=== PATIENT | male | born 1985 | race Caucasian/White ===

== ENCOUNTER 2021-03-04 18:08 | Inpatient (IN) | payer SELFPAY ==
[2021-03-04 18:13] VITALS: BP 139/91; PULSE 113; RESP 18; TEMP 37.4; O2SAT 98; BMI 33.9
[2021-03-04 19:09] LABS: Basophils # 0.1 10^3/uL (0.0-0.1); Basophils % 0.3 %; Eosinophils # 0.1 10^3/uL (0.0-0.8); Hematocrit 56.2 % (42.0-52.0); Hemoglobin 19.1 g/dL (11.7-16.6); Lymphocytes # 6.1 10^3/uL (0.8-4.8); Lymphocytes % 41.6 %; Mean Corpuscular Hemoglobin 30.6 pg (28.0-34.0); Mean Corpuscular Volume 90.1 fl (80-94); Monocytes # 0.5 10^3/uL (0.2-0.9); Monocytes % 3.5 %; Neutrophils # 7.78 10^3/uL (1.8-7.7); Neutrophils % 53.3 %; Nucleated Red Blood Cells % 0 %; Platelet Count 348 10^3/cmm (130-400); Red Blood Count 6.24 10^6/uL (4.1-5.3); Red Cell Distribution Width 12.5 % (12.1-15.1); White Blood Count 14.6 10^3/uL (4.0-10.0)
--- NOTE | 2021-03-04 19:28 | W.ED.GENADLT ---
HPI - General Adult General: Chief complaint: Psychiatric Symptoms Stated complaint: French Drawer Order 96 Time Seen by Provider: 03/04/21 18:31 History of Present Illness: HPI narrative: HPI: [35]yo patient brought in by police under form 96 for homicidal attempt and ideation. On arrival, the patient is AAOx3 and cooperative with my evaluation. No focal complaints of chest pain, shortness of breath, palpitations, N/V, focal GI/ complaints. +HI, denies HI. No complaints of hallucinations. Onset: chronic Duration: ongoing Location: home Severity: severe Review of Systems Narrative: Constitutional: No fever, no chills. HEENT: No vision changes CV: No chest pain, no palpitations PULM: No productive cough, no dyspnea. GI: No abdominal pain, no N/V/D. : No dysuria MSKEL: No muscle pain SKIN: No new rashes, no lesions. NEURO: No headache, no focal weakness. HEME: No visible bruises PSYCH: +Agitated mood, HI PFSH ED PFSH: Family History (Updated 10/27/19 @ 13:39 by Lola Cortez, CT) Other No significant past medical history Social History (Updated 10/27/19 @ 13:39 by Lola Cortez, CT) Alcohol intake: current Alcohol intake frequency: 0-2 Drinks per Day Desire information about alcohol rehabilitation?: No Counseling given: No Desire information about substance/drug rehabilitation?: No Counseling given: No Adopted: No Caregiver/support person: No Lives independently: Yes Household members: spouse Marital status: History of recent travel: No Current gender identity: Male Physical Exam Narrative: EXAM NARRATIVE: Head: Atraumatic Eyes: PERRL, conjunctiva without injection, eyes tracking ENT: Mucous membrane moist NECK: Supple without lymphadenopathy LUNGS: LCTAB CV: RRR ABDOMEN: Soft, nontender EXTREMITY: Normal ROM SKIN: No rash or erythema NEURO: Awake and alert. No focal weakness PSYCH: +Agitated mood Course Vital Signs: Vital signs: Vital Signs Temperature 98.3 F 03/05/21 22:00 Pulse Rate 89 03/05/21 22:00 Respiratory Rate 18 03/05/21 22:00 Blood Pressure 161/97 03/05/21 22:00 Pulse Oximetry 98 03/05/21 22:00 MDM - General Adult MDM Narrative: Medical decision making narrative: [35]yo patient presenting for HI. HDS, exam within normal limit Thoughts are linear and organized, and the patient has no AH/VH, or SI. Clinically the patient displays no overt toxidrome; they are well appearing, with low suspicion for toxic ingestion given history and exam. Symptoms unlikely 2/2 anemia, hypothyroidism, infection, or ICH. Workup: CBC, CMP, Lipase, salicylate/tylenol, USD Lab findings: wnl, UDS positive for marijuana and barbiturates [time] On reassessment, labs and workup wnl. Patient is hemodynamically stable with no acute medical complaints. Case discussed with psychiatric provider Dr. Abundio Abdalla at [facility] psych inpatient with recommendation for admission Disposition: Psych Lab Data: Labs: Lab Results 03/04/21 03/04/21 03/04/21 19:00 19:00 19:00 WBC 14.6 10^3/uL H 10 ^3/uL (4.0-10.0) RBC 6.24 10^6/uL H 10 ^6/uL (4.1-5.3) Hgb 19.1 g/dL H g/dL (11.7-16.6) Hct 56.2 % H % (42.0-52.0) MCV 90.1 fl fl (80-94) MCH 30.6 pg pg (28.0-34.0) MCHC 34.0 g/dL g/dL (30.0-36.0) RDW 12.5 % % (12.1-15.1) Plt Count 348 10^3/cmm 10^3 /cmm (130-400) MPV 10.0 fL fL (7.4-10.4) Neut % (Auto) 53.3 % % Lymph % (Auto) 41.6 % % [place] % (Auto) 3.5 % % Eos % (Auto) 1.0 % % Baso % (Auto) 0.3 % % Neut # (Auto) 7.78 10^3/uL H 10 ^3/uL (1.8-7.7) Lymph # (Auto) 6.1 10^3/uL H 10^ 3/uL (0.8-4.8) [place] # (Auto) 0.5 10^3/uL 10^3/ uL (0.2-0.9) Eos # (Auto) 0.1 10^3/uL 10^3/ uL (0.0-0.8) Baso # (Auto) 0.1 10^3/uL 10^3/ uL (0.0-0.1) Nucleated RBC % (a uto) 0 % % Nucleated RBCs # 0.0 /100WBC /100W BC Sodium 142 mmol/L mmol/L (136-145) Potassium 4.0 mmol/L mmol/L (3.5-5.1) Chloride 104 mmol/L mmol/L (98-107) Carbon Dioxide 21 mmol/L L mmol/ L (22-29) Anion Gap 21.0 H (5-19) BUN 10 mg/dL mg/dL (6-20) Creatinine 0.7 mg/dL mg/dL (0.7-1.2) GFR Calculation 129.1 mL/min mL/m in (90-130) Glucose 119 mg/dL H mg/dL (65-115) Calculated Osmolal ity 294 mOsm/kg mOsm/ kg (285-295) Calcium 9.1 mg/dL mg/dL (8.5-10.5) Salicylates < 0.3 mg/dL L mg/ dL (3-10) Urine Opiates Scre en Acetaminophen < 5.0 ug/mL L ug/ mL (10-30) Ur Barbiturates Sc reen Ur Phencyclidine S crn Ur Amphetamines Sc reen U Benzodiazepines Scrn Urine Cocaine Scre en U Marijuana (THC) Screen Ethyl Alcohol SARS-CoV-2 Ag (Rap id) Negative (Negative) 03/04/21 03/04/21 19:00 19:46 WBC RBC Hgb Hct MCV MCH MCHC RDW Plt Count MPV Neut % (Auto) Lymph % (Auto) [place] % (Auto) Eos % (Auto) Baso % (Auto) Neut # (Auto) Lymph # (Auto) [place] # (Auto) Eos # (Auto) Baso # (Auto) Nucleated RBC % (a uto) Nucleated RBCs # Sodium Potassium Chloride Carbon Dioxide Anion Gap BUN Creatinine GFR Calculation Glucose Calculated Osmolal ity Calcium Salicylates Urine Opiates Scre en Negative ng/mL ng /mL (Negative) Acetaminophen Ur Barbiturates Sc reen Positive ng/mL H ng/mL (Negative) Ur Phencyclidine S crn Negative ng/mL ng /mL (Negative) Ur Amphetamines Sc reen Negative ng/mL ng /mL (Negative) U Benzodiazepines Scrn Negative ng/mL ng /mL (Negative) Urine Cocaine Scre en Negative ng/mL ng /mL (Negative) U Marijuana (THC) Screen Positive ng/mL H ng/mL (Negative) Ethyl Alcohol 170 mg/dL H mg/dL (0-10) SARS-CoV-2 Ag (Rap id) Discharge Plan Discharge Patient Disposition: Admitted As Inpatient Admit Provider: Abundio Abdalla Clinical Impression: Homicidal ideation Condition: Stable Coding Level of Care Code ED Freight Checker for Shanika Robert
[2021-03-04 19:30] LABS: Blood Urea Nitrogen 10 mg/dL (6-20); Calcium 9.1 mg/dL (8.5-10.5); Carbon Dioxide 21 mmol/L (22-29); Chloride 104 mmol/L (98-107); Glomerular Filtration Rate 129.1 mL/min (90-130); Glucose 119 mg/dL (65-115); Osmolality Calculated 294 mOsm/kg (285-295); Sodium 142 mmol/L (136-145)
[2021-03-04 19:32] LABS: Acetaminophen < 5.0 ug/mL (10-30); Salicylate < 0.3 mg/dL (3-10)
[2021-03-04] MEDS: sodium chloride 0.9% 1,000 ML 999 ML IV ×2 (19:40→20:01)
[2021-03-04 20:00] LABS: SARS Covid-2 Antigen Negative (Negative)
[2021-03-04 20:10] LABS: Amphetamines Screen Urine Negative (Negative); Barbiturates Screen Urine Positive (Negative); Benzodiazepines Screen Urine Negative (Negative); Cocaine Screen Urine Negative (Negative); Opiate Screen Urine Negative (Negative); PCP Screen Urine Negative (Negative); THC Screen Urine Positive (Negative)
[2021-03-04] MEDS: LORazepam 1 mg Tablet PO (20:24)
--- NOTE | 2021-03-04 20:41 | PC.NURSE ---
report called to Na NEWTON
[2021-03-04 20:44] VITALS: RESP 18; TEMP 37.4; O2SAT 98
[2021-03-04 20:59] LABS: Alcohol Level 170 mg/dL (0-10)
[2021-03-04 21:12] VITALS: BP 132/98; PULSE 98; RESP 18; TEMP 37.2; O2SAT 97
[2021-03-04 22:00] VITALS: TEMP 37.2
--- NOTE | 2021-03-04 23:08 | PC.NURSE ---
Addendum entered by Beverly Coto RN 03/05/21 02:06: @2303 Pt resting, decrease symptoms of withdrawl, Will continue to observe for return of symptoms throughout the remainder of my shift. Original Note: CIWA/PRN Ciwa score 19 on admit to NPU, Ativan 2mg IM given for moderate Alcoholw withdrawl. Trazodone 50mg PO given for sleep onset, Tylenol 650mg PO given for moderate headache, Zypexa Zydis 5 mg PO Given for increased anxiety d/t another intrusive patient
[2021-03-04] MEDS: LORazepam 2 mg/mL INJ 1 mL IM (23:22)
[2021-03-04] MEDS: trazodone 50 mg Tablet PO (23:22)
[2021-03-04] MEDS: acetaminophen 325 mg Tablet 650 MG PO (23:22)
[2021-03-04] MEDS: OLANZapine 5 mg ODT PO (23:23)
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
[2021-03-05 06:00] VITALS: BP 128/83; PULSE 68; RESP 17; TEMP 36.6; O2SAT 99
[2021-03-05] MEDS: gabapentin 300 mg Capsule PO ×3 (08:23→20:29)
[2021-03-05] MEDS: thiamine 100 mg Tablet PO (08:23)
[2021-03-05] MEDS: folic acid 1 mg Tablet PO (08:23)
[2021-03-05] MEDS: hyDROXYzine 25 mg Capsule 50 MG PO ×2 (08:23→20:30)
[2021-03-05] MEDS: pantoprazole DR 40 mg Tablet PO (08:23)
[2021-03-05] MEDS: multivitamin therapeutic Tablet 1 TAB PO (08:23)
--- NOTE | 2021-03-05 08:24 | PC.NURSE ---
PRN VISTARIL 50 MG GIVEN PO PER PT C/O ANXIETY. NEW ADMIT, UPSET ABOUT DETOXING OFF ALCOHOL ON CIWA PROTOCOL CURRENTLY
[2021-03-05] MEDS: nicotine 21 mg Patch 1 PATCH TRANSDERMA (11:32)
[2021-03-05 14:00] VITALS: BP 160/98; PULSE 82; RESP 18; TEMP 36.4; O2SAT 98
--- NOTE | 2021-03-05 15:53 | P.HP_ITS ---
Providers/Chief Complaint Admitting Physician: Abundio Abdalla MD Primary Care Provider: NELIDA Cooper Chief Complaint: Video Poker Floorman Order 96 HPI NPU History of Present Illness Florencio Mejias is a 35 year old male with a reported history of significant anger along with heavy alcohol and drug use who was admitted after an altercation with the police while intoxicated. The ED note states: [35]yo patient brought in by police under order 96 for homocidal attempt and ideation. On arrival, the patient is AAOx3 and cooperative with my evaluation. No focal complaints of chest pain, shortness of breath, palpitations, N/V, focal GI/ complaints. +HI, denies HI. No complaints of hallucinations. HDS, exam within normal limit Thoughts are linear and organized, and the patient has no AH/VH, or SI. Clinically the patient displays no overt toxidrome; they are well appearing, with low suspicion for toxic ingestion given history and exam. Symptoms unlikely 2/2 anemia, hypothyroidism, infection, or ICH. Workup: CBC, CMP, Lipase, salicylate/tylenol, USD Lab findings: wnl. On reassessment, labs and workup wnl. Patient is hemodynamically stable with no acute medical complaints. Case discussed with psychiatric provider Dr. Abundio Abdalla at [facility] psych inpatient with recommendation for admission. The patient does not remember much about the events that led to his hospitalization. He remembers drinking heavily and walking down the road. He cannot remember what got him upset enough to start walking. The next thing he remembers is that he was in the emergency room. He can remember some flashes of being in the police station, and it was hostile. When asked why he is here, he replies, I treated anxiety with alcohol, and I drank the wrong stuff. He does describe having intense anxiety which he relieves by drinking alcohol. He said he was drinking half a pint of vodka a day but has increased to 1/5 of vodka daily over the last 2 weeks. He says he has had alcohol withdrawal symptoms in the past, and today is feeling shaky, sweaty, chilled, and has brain fog and a dry mouth. He denies nausea, vomiting and diarrhea. He denies past history of withdrawal delirium. He denies drug use, but says he used to smoke marijuana, and still does occasionally. Urine toxicology was positive for barbiturates and THC. Reports indicate that a family member recently found syringes and other drug paraphernalia in his backpack. He does smoke cigarettes. The patient also describes having intense anger. He gets angry about things that are unfair, but his response is much more intense anger than the situation warrants. He says he drinks to try to control his anger, and he is reluctantly willing to consider medication as well. His anger has been present all his life, and has led to things like getting kicked out of medical clinics. He denies having had auditory and visual hallucinations. He denies suicidal or homicidal ideation. The patient says he is taken some psychiatric medication including Seroquel which made him drool. He says Zoloft caused his face to swell. It is not clear if he has been in a psychiatric hospital before. Psychiatric history: As above. Substance use history: As above. Family history: Patient denies mental health or addiction issues on either side of the family and denies suicide attempts or completions in the family. He says that his aunts on both sides of the family have diabetes and there is heart disease that runs in the family as well. Psychosocial history: The patient says he was born and raised in the [facility]. He was for 10 years and has 2 children from that marriage. He currently is not allowed to see the children, and says he is in a licha ntegration program to see them again. 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 Legal history: No legal difficulties. Medical history: Back surgery at age 30. Meds NPU Home Medications Medication Instructions Recorded Confirmed Last Taken Type gabapentin 300 mg capsule 300 mg PO TID 10/27/19 03/05/21 Unknown History pantoprazole 20 mg tablet,delayed 20 mg PO DAILY 10/27/19 03/05/21 Unknown History release Allergies Allergy/AdvReac Type Severity Reaction Status Date / Time No Known Allergies Allergy Unverified 10/27/19 13:17 [facility] NPU PFS: Family History (Updated 10/27/19 @ 13:39 by SAM Acosta) Other No significant past medical history Social History (Updated 10/27/19 @ 13:39 by SAM Acosta) Alcohol intake: current Alcohol intake frequency: 0-2 Drinks per Day Desire information about alcohol rehabilitation?: No Counseling given: No Desire information about substance/drug rehabilitation?: No Counseling given: No Adopted: No Caregiver/support person: No Lives independently: Yes Household members: spouse Marital status: History of recent travel: No Current gender identity: Male Mental Status Exam MSE Comments: I met with the patient in his room with the door open, and he was dressed in hospital scrubs and appropriately groomed. He was somewhat agitated and guarded, but did relax somewhat and became somewhat more cooperative. He made fairly good eye contact. Speech is at a regular rate and rhythm, normal volume, good articulation, not pressured. Alert, oriented to person, place, time, situation, except that he said it was March instead of February. Attention and concentration were intact to exam. Memory is intact to exam. Mood is anxious and irritable. Affect is irritable. Thought process is logical and goal-directed. Thought content: Denies auditory and visual hallucinations. No delusions or paranoia are noted. No current suicidal ideation, and no homicidal ideation. Fund of knowledge is intact to exam. Language is intact to exam. Insight and judgment appear to be impaired by substance use. Impulse control is impaired as well. Vitals/I&O/Wt Last Vital Signs Temp 97.9 F 03/05/21 06:00 Pulse 68 03/05/21 06:00 Resp 17 03/05/21 06:00 BP 128/83 03/05/21 06:00 Pulse Ox 99 03/05/21 06:00 03/04/21 03/04/21 03/05/21 14:59 22:59 06:59 Intake Total 1999 Balance 1999 Weight last 48 hrs Weight 113.398 kg Data NPU : 03/04/21 19:00 03/04/21 19:00 A&P Assessment and plan (1) Homicidal ideation: Status: Acute (2) Intermittent explosive disorder in adult: Status: Acute (3) Mood disorder: Status: Acute (4) Alcohol use disorder, moderate, dependence: Status: Acute (5) Polysubstance abuse: Status: Acute (6) Chronic pain: Status: Acute Additional A&P Information This is a 35 year old male with a reported history of significant anger along with heavy alcohol and drug use who was admitted after an altercation with the police while intoxicated. RECOMMENDATION AND PLAN: 1. Start Abilify 5 mg for mood stabilization / anger. Pt wants to start at a lo w dose. He has taken Abilify before and understands risks, benefits, and side effects, and consents. 2. Continue every 15 minute checks for safety. 3. Encourage individual, group and milieu therapies. 4. Encourage sober living treatment after discharge at the highest level of care to which he is willing to commit. 5. Placed on the alcohol CIWA protocol. 6. Make referrals to [facility] for therapy and medication management. Involuntary Hold Information 96 Hour Hold: 96 Hour Involuntary Admission: Yes 96 Hour Hold Ending Date: 03/08/21 96 Hour Hold Ending Time: 20:15 Attestations U Medical Necessity Statement*: Psychiatric hospitalization is medically necessary to prevent access to lethal means, to reevaluate medication, and to coordinate a safe discharge. Patient will be in the hospital for over 2 midnights. Likely length of stay is 3 to 5 days. Coding Level of Care Code Acute Photograph Developer for Shanika Dumontd Diagnoses Homicidal ideation R45.850 Intermittent explosive disorder in adult F63.81 Mood disorder F39 Alcohol use disorder, moderate, dependence F10.20 Polysubstance abuse F19.10 Chronic pain G89.29
[2021-03-05] MEDS: OLANZapine 5 mg ODT PO (16:08)
--- NOTE | 2021-03-05 16:08 | PC.NURSE ---
Addendum entered by Daphne Gregg LPN 03/05/21 17:04: PRN MED EFFECTIVE NO FURTHER C/O AGITATION AT CURRENT TIME Original Note: PRN ZYPREXA ZYDIS 5 MG GIVEN PO SUBLINGUAL PER PT C/O AGITATION BECAUSE PT REALLY WANTS TO HAVE A DRINK PT UPSET HE ISN'T BEING DISCHARGED RIGHT NOW. ENCOURAGED TO TRY TO WORK OUT HIS FRUSTRATION USING POSITIVE COPING SKILLS, SUCH WALKING HALLWAY, WATCHING TV, DOING WORD SEARCHES OR READING A BOOK. PT DECLINED WANTING TO TRY ANY OF THESE COPING SKILLS, STATED HE WOULD JUST SIT IN HIS ROOM & STARE OUT THE WINDOW
[2021-03-05] MEDS: ARIPiprazole 10 mg Tablet 5 MG PO (18:29)
[2021-03-05] MEDS: LORazepam 2 mg Tablet PO (20:29)
[2021-03-05] MEDS: acetaminophen 325 mg Tablet 650 MG PO (20:30)
[2021-03-05] MEDS: trazodone 50 mg Tablet PO (20:31)
--- NOTE | 2021-03-05 20:33 | PC.NURSE ---
PRN's Tylenol 650mg PO given for back pain Vistaril 50mg PO given for anxiety. Trazdone 50 mg PO given for sleep Nicotine Gum given to pt
--- NOTE | 2021-03-05 20:37 | PC.NURSE ---
Addendum entered by Beverly Coto RN 03/06/21 05:38: Pt responded by resting, however, he woke up needing another Dose of Ativan Original Note: CIWA 11, Ativan 2mg PO givenm for withdrawl
--- NOTE | 2021-03-05 20:39 | PC.NURSE ---
Removed Nicotine patch
[2021-03-05 22:00] VITALS: BP 161/97; PULSE 89; RESP 18; TEMP 36.8; O2SAT 98
[2021-03-06] MEDS: LORazepam 2 mg Tablet PO ×2 (03:50→23:15)
--- NOTE | 2021-03-06 03:51 | PC.NURSE ---
Addendum entered by Beverly Coto RN 03/06/21 05:34: pt less symptomatic, resting Original Note: CIWA 13 Ativan 2mg PO given for alcohol withdrawl
[2021-03-06] MEDS: nicotine 2 mg Gum BUCCAL ×2 (04:39→21:41)
[2021-03-06 06:00] VITALS: BP 170/124; PULSE 86; RESP 18; TEMP 36.6; O2SAT 93
[2021-03-06] MEDS: nicotine 21 mg Patch 1 PATCH TRANSDERMA (09:09)
[2021-03-06] MEDS: ARIPiprazole 10 mg Tablet 5 MG PO ×2 (09:09→21:33)
[2021-03-06] MEDS: thiamine 100 mg Tablet PO (09:10)
[2021-03-06] MEDS: multivitamin therapeutic Tablet 1 TAB PO (09:10)
[2021-03-06] MEDS: gabapentin 300 mg Capsule PO ×3 (09:10→21:34)
[2021-03-06] MEDS: pantoprazole DR 40 mg Tablet PO (09:10)
[2021-03-06] MEDS: folic acid 1 mg Tablet PO (09:10)
[2021-03-06 14:00] VITALS: BP 170/124; PULSE 86; RESP 18; TEMP 36.6; O2SAT 93
--- NOTE | 2021-03-06 15:22 | P.PN_ITS ---
Subjective NPU Subjective: Interval history: I discussed the patient's progress with the treatment team. They say his CIWA scores have been running 13-19 in the afternoon and evenings. We discussed his disposition, moving back home, and felt that was a good plan for him when he is ready. The patient says that his mood has been irritable because he has had pain in his shoulder. He has been s leeping poorly. He feels the gabapentin does help the pain some. He denies suicidal and homicidal ideation. He has no auditory or visual hallucinations. He has some future orientation and talking about his 2-year-old daughter. His plan is to move back to [place], [place] for a while, then moved back to the [facility] where he is originally from. He does say that he has been having alcohol withdrawal symptoms in the afternoon. We talked about increasing Abilify to 10 mg daily. He agrees. He has had some mild dry mouth. Mental Status Exam MSE Comments: I met with the patient in the day room, and he was dressed in hospital scrubs and appropriately groomed. He was Colmer and fairly cooperative. He made good eye contact. Speech is at a regular rate and rhythm, normal volume, good articulation, not pressured. Alert, oriented to person and situation. Attention and concentration were intact to exam. Memory is intact to exam. Mood is improved. Affect is irritable. Thought process is logical and goal-directed. Thought content: Denies auditory and visual hallucinations. No delusions or paranoia are noted. No current suicidal ideation, and no homicidal ideation. Fund of knowledge is intact to exam. Language is intact to exam. Insight and judgment appear to be impaired by substance use. Impulse control is impaired as well. All are improving. Vitals/I&O/Wt Last Vital Signs Temp 98 F 03/06/21 14:00 Pulse 86 03/06/21 14:00 Resp 18 03/06/21 14:00 BP 170/124 03/06/21 14:00 Pulse Ox 93 03/06/21 14:00 Weight last 48 hrs Weight 113.398 kg Data NPU : 03/04/21 19:00 03/04/21 19:00 A&P Assessment and plan (1) Mood disorder: Status: Acute (2) Chronic pain: Status: Acute (3) Polysubstance abuse: Status: Acute (4) Alcohol use disorder, moderate, dependence: Status: Acute (5) Intermittent explosive disorder in adult: Status: Acute (6) Homicidal ideation: Status: Acute Additional A&P Information This is a 35 year old male with a reported history of significant anger along with heavy alcohol and drug use who was admitted after an altercation with the police while intoxicated. RECOMMENDATION AND PLAN: 1. Increase Abilify to 10 mg for mood stabilization / anger. Mild side effects. 2. Continue every 15 minute checks for safety. 3. Encourage individual, group and milieu therapies. 4. Encourage sober living treatment after discharge at the highest level of care to which he is willing to commit. 5. Placed on the alcohol CIWA protocol. 6. Make referrals for therapy and medication management. Involuntary Hold Information 96 Hour Hold: 96 Hour Involuntary Admission: Yes 96 Hour Hold Ending Date: 03/08/21 96 Hour Hold Ending Time: 20:15 Attestations NPU Medical Necessity Statement*: Psychiatric hospitalization is medically necessary to prevent access to lethal means, to reevaluate medication, and to coordinate a safe discharge. Likely length of stay is 2 to 4 days. Coding Level of Care Code Acute Stack Yield Engineer for Shanika Robert Diagnoses Mood disorder F39 Chronic pain G89.29 Polysubstance abuse F19.10 Alcohol use disorder, moderate, dependence F10.20 Intermittent explosive disorder in adult F63.81 Homicidal ideation R45.850
[2021-03-06] MEDS: OLANZapine 5 mg ODT PO ×2 (15:39→23:16)
[2021-03-06] MEDS: hyDROXYzine 25 mg Capsule 50 MG PO (21:34)
[2021-03-06] MEDS: trazodone 50 mg Tablet PO (21:35)
[2021-03-06 21:52] VITALS: BP 168/104; PULSE 90; RESP 18; O2SAT 98
[2021-03-06] MEDS: haloperidol 5 mg Tablet PO (23:16)
--- NOTE | 2021-03-06 23:17 | PC.NURSE ---
Addendum entered by Beverly Coto RN 03/07/21 04:42: Within an hour this patient was sound asleep. He has rested well all evening Original Note: Ciwa 21/PRN Ativan 2mg PO given for alcohol withdrawl and agitation. Zyprexa Zydis 50mg PO given for intrusive thoughts, racing thoughts Haldol 5mg PO given for AH/VH
[2021-03-07] MEDS: hyDROXYzine 25 mg Capsule 50 MG PO ×2 (05:05→21:03)
[2021-03-07 06:00] VITALS: BP 168/104; PULSE 90; RESP 19; TEMP 36.6; O2SAT 98
[2021-03-07] MEDS: nicotine 2 mg Gum BUCCAL ×4 (06:53→21:26)
[2021-03-07] MEDS: folic acid 1 mg Tablet PO (09:10)
[2021-03-07] MEDS: gabapentin 300 mg Capsule PO ×3 (09:10→21:03)
[2021-03-07] MEDS: ARIPiprazole 10 mg Tablet PO (09:11)
[2021-03-07] MEDS: thiamine 100 mg Tablet PO (09:11)
[2021-03-07] MEDS: pantoprazole DR 40 mg Tablet PO (09:11)
[2021-03-07] MEDS: multivitamin therapeutic Tablet 1 TAB PO (09:11)
[2021-03-07] MEDS: nicotine 21 mg Patch 1 PATCH TRANSDERMA (09:14)
[2021-03-07] MEDS: OLANZapine 5 mg ODT PO ×2 (09:15→21:04)
[2021-03-07] MEDS: LORazepam 2 mg Tablet PO ×2 (10:34→19:34)
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
[2021-03-07 14:00] VITALS: BP 157/92; PULSE 100; RESP 18; TEMP 36.7; O2SAT 97
[2021-03-07] MEDS: haloperidol 5 mg Tablet PO (15:10)
[2021-03-07 20:51] VITALS: BP 131/71; PULSE 93; RESP 18; TEMP 36.6; O2SAT 97
[2021-03-07] MEDS: trazodone 50 mg Tablet PO (21:04)
--- NOTE | 2021-03-07 21:27 | PC.NURSE ---
nICOTINE PATCH REMOVED
--- NOTE | 2021-03-07 22:05 | PC.NURSE ---
CIWA 18, Med nurse notified, physician called to update on pt reaction to abilify. pt reports increasing anger
[2021-03-07] MEDS: LORazepam 2 mg/mL INJ 1 mL IM (23:02)
--- NOTE | 2021-03-08 00:47 | PC.NURSE ---
PM assessment pt is agitated, reports anger building up since he has started Abilify. Physician notified of this. CIWA is 3 down from 18 after 2mg Ativan IM administered. Pt has received zyprexa zydis and this helped with his racing thoughts, pt receieved visteril 50mg po to help with anxiety with minimal relief. pt reports VH and AH, states he is empathic. pt expressed his concern over his homeopathic use of Kratom, reports he used a minimum of 5-1gram tablets for pain relief. prior to admission he used 20g of kratom and drank a 1/5 of vodka. pt states he uses this for pain d/t prior back surgery. pt does want to stop drinking but says he cant without medication and follow up
--- NOTE | 2021-03-08 03:20 | PC.NURSE ---
PRN meds, Trazodone 50mg PO & Vistaril 50mg PO given for sleep and anxiety. Upon reassessment medications were effective.
[2021-03-08] MEDS: nicotine 2 mg Gum BUCCAL ×3 (03:56→19:01)
[2021-03-08 06:00] VITALS: BP 148/88; PULSE 83; RESP 16; TEMP 36.6; O2SAT 97
--- NOTE | 2021-03-08 06:56 | PC.NURSE ---
CIWA 16, Med nurse notifed and pt received 2mg po ativan.
[2021-03-08] MEDS: LORazepam 2 mg Tablet PO ×2 (07:04→09:20)
[2021-03-08] MEDS: multivitamin therapeutic Tablet 1 TAB PO (08:06)
[2021-03-08] MEDS: gabapentin 300 mg Capsule PO ×3 (08:06→20:31)
[2021-03-08] MEDS: ARIPiprazole 2 mg Tablet PO (08:06)
[2021-03-08] MEDS: nicotine 21 mg Patch 1 PATCH TRANSDERMA (08:06)
[2021-03-08] MEDS: pantoprazole DR 40 mg Tablet PO (08:07)
[2021-03-08] MEDS: folic acid 1 mg Tablet PO (08:07)
[2021-03-08] MEDS: thiamine 100 mg Tablet PO (08:07)
[2021-03-08] MEDS: OLANZapine 5 mg ODT PO ×2 (08:09→18:40)
[2021-03-08] MEDS: acetaminophen 325 mg Tablet 650 MG PO (10:36)
[2021-03-08 14:00] VITALS: BP 148/88; PULSE 83; RESP 16; TEMP 36.6; O2SAT 97
[2021-03-08] MEDS: hyDROXYzine 25 mg Capsule 50 MG PO ×2 (14:36→21:55)
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
[2021-03-08 20:45] VITALS: BP 180/138; PULSE 94; RESP 18; TEMP 36.7; O2SAT 97
--- NOTE | 2021-03-08 20:46 | PC.NURSE ---
nurse aravind notified of hypertension aid took clients b/p automatically first; reading was 161/101 second b/p on opposite arm was 162/106 aid took b/p manually on each arm/b/p was 180/138
[2021-03-08 21:48] VITALS: BP 178/105
[2021-03-08] MEDS: LORazepam 2 mg/mL INJ 1 mL IM (21:54)
[2021-03-08] MEDS: trazodone 50 mg Tablet PO (21:54)
[2021-03-09 06:00] VITALS: BP 146/97; PULSE 83; RESP 19; TEMP 36.8; O2SAT 98
[2021-03-09] MEDS: nicotine 2 mg Gum BUCCAL ×2 (06:13→20:09)
[2021-03-09] MEDS: hyDROXYzine 25 mg Capsule 50 MG PO ×2 (06:55→20:11)
[2021-03-09] MEDS: paliperidone ER 3 mg Tablet PO ×2 (09:14→21:59)
[2021-03-09] MEDS: LORazepam 2 mg Tablet PO ×2 (09:14→15:20)
[2021-03-09] MEDS: multivitamin therapeutic Tablet 1 TAB PO (09:14)
[2021-03-09] MEDS: gabapentin 300 mg Capsule PO ×3 (09:14→20:11)
[2021-03-09] MEDS: thiamine 100 mg Tablet PO (09:14)
[2021-03-09] MEDS: folic acid 1 mg Tablet PO (09:14)
[2021-03-09] MEDS: pantoprazole DR 40 mg Tablet PO (09:14)
[2021-03-09] MEDS: nicotine 21 mg Patch 1 PATCH TRANSDERMA (09:34)
--- NOTE | 2021-03-09 11:39 | PC.NURSE ---
Patient Behaviors When this realtime reporter rounded on this patient around 0800, patient was jumping round his room, giggling; telling this realtime reporter and roommate that he was just hyper and could not settle down. Patient was given PO ativan and morning medications at around 0915. Patient at nurses station around 1015, stating he feels much calmer. patient is no longer jumping around and does appear calm. Speech is slower and more clear. Patient states his thoughts are slower and he thinks the new medication is helping. Will continue to monitor.
[2021-03-09 14:00] VITALS: BP 202/105; PULSE 97; RESP 17; TEMP 36.7; O2SAT 97
[2021-03-09] MEDS: OLANZapine 5 mg ODT PO (14:23)
[2021-03-09 14:26] LABS: Glucose Point of Care 145 mg/dL (70-110)
--- NOTE | 2021-03-09 14:30 | PC.NURSE ---
Patient complains for feeling anxious - CIWA scored at 18. Discussed with other nurse who had just given patient Zyprexa for complaints of anxiety. Zyprexa given at 1423. Will continue to monitor symptoms and reassess as needed.
--- NOTE | 2021-03-09 14:56 | PC.NURSE ---
patient lying in bed with eyes closed. Will continue to monitor.
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
[2021-03-09] MEDS: trazodone 50 mg Tablet PO (20:11)
[2021-03-09 20:55] VITALS: BP 135/75; PULSE 82; RESP 17; TEMP 36.8; O2SAT 98
[2021-03-09] MEDS: LORazepam 2 mg/mL INJ 1 mL IM (21:59)
[2021-03-10 06:00] VITALS: BP 170/95; PULSE 68; RESP 15; TEMP 37.1; O2SAT 98
[2021-03-10] MEDS: hyDROXYzine 25 mg Capsule 50 MG PO ×3 (06:54→21:03)
[2021-03-10] MEDS: gabapentin 300 mg Capsule PO ×3 (08:19→19:30)
[2021-03-10] MEDS: paliperidone ER 3 mg Tablet PO ×2 (08:19→18:04)
[2021-03-10] MEDS: multivitamin therapeutic Tablet 1 TAB PO (08:19)
[2021-03-10] MEDS: folic acid 1 mg Tablet PO (08:19)
[2021-03-10] MEDS: thiamine 100 mg Tablet PO (08:19)
[2021-03-10] MEDS: pantoprazole DR 40 mg Tablet PO (08:19)
[2021-03-10] MEDS: LORazepam 2 mg Tablet PO (09:37)
--- NOTE | 2021-03-10 09:39 | PC.NURSE ---
ADMINISTERED ATIVAN 2MG PER CIWA PROTOCOL. CIWA SCORE 10.
[2021-03-10] MEDS: nicotine 21 mg Patch 1 PATCH TRANSDERMA (09:46)
--- NOTE | 2021-03-10 10:55 | PC.NURSE ---
Addendum entered by Daphne Gregg LPN 03/10/21 15:49: prn med effective no further c/o anxiety Original Note: PRN VISTARIL 50 MG GIVEN PO PER PT C/O STATED ANXIETY. PT ASKED FOR MEDS BEFORE HE CHOKES THIS LITTLE SHIT OUT PATIENT STATED THAT HE WOULD NOT HARM OR TOUCH ANYBODY ELSE ON THE UNIT, PT REDIRECTED BY STAFF TO GO REST IN HIS ROOM WHERE HE COULD BE ALONE & RELAX. PT AGREEABLE TO TAKING MEDICATION & WENT TO HIS ROOM TO REST PRIVATELY. STAFF WILL CONT TO MONITOR
[2021-03-10] MEDS: OLANZapine 5 mg ODT PO ×2 (13:13→21:03)
--- NOTE | 2021-03-10 13:13 | PC.NURSE ---
Addendum entered by Daphne Gregg LPN 03/10/21 15:48: prn med effective no further c/o agitation. pt up pacing the unit with his roommate, mood is calm, laughing while in conversation Original Note: PRN ZYPREXA ZYDIS 5 MG GIVEN PO SUBLINGUAL PER PT C/O INCREASED AGITATION. PT UPSET THAT HE IS HERE ON THE UNIT NOT BEING DISCHARGED, THINKS THAT AN OB STAFF MEMBER THAT IS CURRENTLY ON THE FLOOR SITTING WAS THE SAME OB STAFF MEMBER THAT WAS HERE WHEN HIS BABY AT THE HOSPITAL. STAFF WILL CONT TO MONITOR
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
[2021-03-10 14:00] VITALS: BP 150/99; PULSE 100; RESP 18; TEMP 36.2; O2SAT 97
[2021-03-10] MEDS: nicotine 2 mg Gum BUCCAL (19:30)
[2021-03-10] MEDS: LORazepam 2 mg/mL INJ 1 mL IM (19:47)
[2021-03-10] MEDS: trazodone 50 mg Tablet PO (21:03)
[2021-03-10 21:28] VITALS: BP 202/130; PULSE 98; RESP 19; TEMP 37.1; O2SAT 97
[2021-03-11] MEDS: nicotine 2 mg Gum BUCCAL (05:02)
[2021-03-11] MEDS: hyDROXYzine 25 mg Capsule 50 MG PO ×2 (05:48→10:00)
[2021-03-11 06:00] VITALS: BP 172/110; PULSE 104; RESP 16; TEMP 36.8; O2SAT 98
--- NOTE | 2021-03-11 06:34 | PC.NURSE ---
nurse notified of hypertension
--- NOTE | 2021-03-11 08:03 | P.CONIM_ITS ---
Providers/Reason For Consult Consulting Physician/Specialty*: Heriberto Bautista, hospitalist Reason for Consult*: Elevated blood pressure Attending Physician: Abundio Abdalla MD Primary Care Provider: NELIDA Cooper History of Present Illness History of Present Illness Florencio Mejias is a 35 year old male admitted to the psychiatric unit on March 04 with homicidal ideation, anger control, alcohol use disorder. He has been markedly hypertensive, despite no evidence currently of alcohol or substance withdrawal. He reports he is asymptomatic with this with no hypertension, dizziness, chest pain, nausea. He reports he does not go to the doctor so has no idea what his blood pressure was as an outpatient. From my understanding he will be discharged within the next 1 to 2 days. Review of Systems General: Reports: 10 or more systems reviewed and unremarkable except in HPI and below Const: Denies: fever(s) Eyes: Denies: change in vision ENMT: Denies: throat pain Card: Denies: chest pain Resp: Denies: dyspnea GI: Denies: abdominal pain : Denies: flank pain Musc: Reports: back pain; Denies: neck pain Skin/Breast: Denies: rash Neuro: Denies: headache(s) Psych: Reports: mood swings Endo: Denies: polyuria Zeus/Lymph: Denies: easy bruising All/Imm: Denies: urticaria Meds/Allergies Home Medications and Allergies Home Medications Medication Instructions Recorded Confirmed Last Taken Type gabapentin 300 mg capsule 300 mg PO TID 10/27/19 03/05/21 Unknown History pantoprazole 20 mg tablet,delayed 20 mg PO DAILY 10/27/19 03/05/21 Unknown History release Allergies Allergy/AdvReac Type Severity Reaction Status Date / Time No Known Allergies Allergy Unverified 10/27/19 13:17 Current Medications Current Medications Generic Name Dose Route Start Last Admin Trade Name Freq PRN Reason Stop Dose Admin Acetaminophen 650 mg 03/04/21 21:12 03/08/21 10:36 Acetaminophen 325 Mg Tablet PO 650 mg Q4H PRN Administration MILD PAIN Folic Acid 1 mg 03/05/21 09:00 03/10/21 08:19 Folic Acid 1 Mg Tablet PO 1 mg DAILY ASHLEY Administration Gabapentin 300 mg 03/05/21 09:00 03/10/21 19:30 Gabapentin 300 Mg Capsule PO 300 mg TID ASHLEY Administration Haloperidol 5 mg 03/04/21 21:12 03/07/21 15:10 Haloperidol 5 Mg Tablet PO 5 mg Q4H PRN Administration AGITATION Hydroxyzine Pamoate 50 mg 03/04/21 21:12 03/11/21 05:48 Hydroxyzine 25 Mg Capsule PO 50 mg Q6H PRN Administration ANXIETY Lorazepam 2 mg 03/04/21 23:03 03/10/21 09:37 Lorazepam 2 Mg Tablet PO 2 mg PROTOCOL PRN Administration WITHDRAWAL Protocol Lorazepam 2 mg 03/08/21 21:15 03/10/21 19:47 Lorazepam 2 Mg/Ml Inj 1 Ml IM 2 mg Q24H PRN Administration ANXIETY Multivitamins Therapeutic 1 tab 03/05/21 09:00 03/10/21 08:19 Multivitamin Therapeutic Tablet PO 1 tab DAILY ASHLEY Administration Nicotine 1 patch 03/04/21 21:12 03/10/21 09:46 Nicotine 21 Mg Patch TRANSDERMA 1 patch DAILY PRN Administration NICOTINE WITHDRAWAL Nicotine Polacrilex 2 mg 03/04/21 21:12 03/11/21 05:02 Nicotine 2 Mg Gum BUCCAL 2 mg Q2H PRN Administration NICOTINE WITHDRAWAL Olanzapine 5 mg 03/04/21 21:12 03/10/21 21:03 Olanzapine 5 Mg Odt PO 5 mg Q4H PRN Administration Agitation/Psychosis Pantoprazole Sodium 40 mg 03/05/21 09:00 03/10/21 08:[address] 40 Mg Tablet PO 40 mg DAILY ASHLEY Administration Thiamine Mononitrate 100 mg 03/05/21 09:00 03/10/21 08:19 Thiamine 100 Mg Tablet PO 100 mg DAILY ASHLEY Administration Trazodone HCl 50 mg 03/05/21 20:38 03/10/21 21:03 Trazodone 50 Mg Tablet PO 50 mg BEDTIME PRN Administration INSOMNIA PFSH Acute PFSH: Medical History (Updated 03/11/21 @ 08:10 by Heriberto Bautista MD) Alcohol use disorder, moderate, dependence Chronic back pain Chronic pain Intermittent explosive disorder in adult Polysubstance abuse PTSD (post-traumatic stress disorder) Surgical History (Updated 03/11/21 @ 08:06 by Heriberto Bautista MD) History of appendectomy History of back surgery Family History (Updated 03/11/21 @ 08:06 by Heriberto Bautista MD) Other CAD (coronary artery disease) No significant past medical history Social History (Updated 03/11/21 @ 08:07 by Heriberto Bautista MD) Smoking and tobacco status: current some day smoker Alcohol intake: current Alcohol intake frequency: 3 or more drinks per day Desire information about alcohol rehabilitation?: No Counseling given: No Desire information about substance/drug rehabilitation?: No Counseling given: No Adopted: No Caregiver/support person: No Lives independently: Yes Household members: spouse Marital status: History of recent travel: No Current gender identity: Male Vitals/I&O/Wt Last Vital Signs Temp 98.2 F 03/11/21 06:00 Pulse 104 H 03/11/21 06:00 Resp 16 03/11/21 06:00 BP 172/110 03/11/21 06:00 Pulse Ox 98 03/11/21 06:00 Weight last 48 hrs Weight 113.398 kg Physical Exam Narrative: EXAM NARRATIVE: General exam is a conversant white male who walks with a limp. HEENT: Atraumatic and normocephalic. Pupils equally round. Oropharynx clear. Neck is supple no lymphadenopathy or thyromegaly Cardiovascular regular rate and rhythm without murmur, no S3 or S4 Lungs clear to auscultation bilaterally no wheezing or crackles Abdomen is soft obese nontender with no obvious organomegaly exam is deferred Extremities no cyanosis clubbing or edema, cap refill brisk Skin no rash Neuro no obvious focal deficits. Data Other Data: Other data: Calcium 9.1 Hemoglobin slightly high at 119 with [id number] glucose of 145 Liver function test not done Urine drug screen positive for barbiturates and THC. Alcohol level 170. Rapid Covid negative. A&P Assessment and plan (1) Hypertension: He currently has no evidence of withdrawal. This is increases the likelihood that hypertension is chronic. He has marked elevation of multiple blood pressures here at the hospital. Initiate lisinopril 20 mg with hydrochlorothiazide 12.5 mg every morning. Discussed with patient treatment Will need follow-up outpatient in approximately 2 weeks for further adjustments. Check TSH Status: Acute (2) Elevated glucose: Check hemoglobin A1c Status: Acute (3) Polysubstance abuse: Check LFTs Status: Acute Additional A&P Information Thank you for this consultation. Consult Attestations Medical Necessity Statement: As per primary Time Spent in Patient Care: Greater than 35 minutes Coding Level of Care Code Acute Manager Long Term Care for Chg Fwd Diagnoses Hypertension I10 Elevated glucose R73.09 Polysubstance abuse F19.10
[2021-03-11] MEDS: folic acid 1 mg Tablet PO (08:13)
[2021-03-11] MEDS: gabapentin 300 mg Capsule PO (08:13)
[2021-03-11] MEDS: multivitamin therapeutic Tablet 1 TAB PO (08:13)
[2021-03-11] MEDS: thiamine 100 mg Tablet PO (08:13)
[2021-03-11] MEDS: pantoprazole DR 40 mg Tablet PO (08:13)
[2021-03-11] MEDS: paliperidone ER 3 mg Tablet 6 MG PO (08:14)
[2021-03-11] MEDS: lisinopril 20 mg Tablet PO (08:15)
[2021-03-11] MEDS: hydroCHLOROthiazide 25 mg Tablet 12.5 MG PO (08:15)
[2021-03-11] MEDS: nicotine 21 mg Patch 1 PATCH TRANSDERMA (09:32)
--- NOTE | 2021-03-11 10:01 | PC.NURSE ---
PRN VISTARIL 50 MG GIVEN PO PER PT C/O STATED ANXIETY. PT STATED THE BULLSHIT IN THAT CLASS IS WORKING ME UP PT ASKS FOR ANY AND ALL PRN MEDICATION HE CAN HAVE, MED SEEKING TENDENCIES NOTED. WILL CONT TO MONITOR
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
[2021-03-11 11:10] LABS: Estmated Average Glucose 108; Hemoglobin A1C 5.4 % (4.0-6.0)
[2021-03-11 11:32] LABS: Alanine Aminotransferase 70 U/L (0-41); Albumin Level 4.5 g/dL (3.5-5.2); Alkaline Phosphatase 103 IU/L (40-130); Aspartate Amino Transferase 30 U/L (0-40); Globulin 2.9 g/dL (1.3-4.6); Thyroid Stimulating Hormone 0.98 uIU/mL (0.27-4.20); Total Bilirubin 0.2 mg/dL (0.15-1.2); Total Protein 7.4 g/dL (6.6-8.7)
[2021-03-11 11:41] VITALS: BP 172/110; PULSE 104; RESP 16; TEMP 36.8; O2SAT 98
[2021-03-11 14:10] LABS: Hepatitis A Antibody IgM Non-Reactive (Nonreactive); Hepatitis B Core IgM Non-Reactive (Nonreactive); Hepatitis B Surface Antigen Non-Reactive (Nonreactive); Hepatitis C Virus Antibody Non-Reactive (Nonreactive)
== END 2021-03-11 13:25 | disposition home or self-care (01) | DRG 883 ==
LOC: ER 19:30 → NP 20:40
PROVIDERS: Internal Medicine; Admitting Provider Psychiatry & Neurology Child & Adolescent Psychiatry; Emergency Provider Emergency Medicine; PCP Nurse Practitioner Family; Visit Provider Psychiatry & Neurology Child & Adolescent Psychiatry
DX: F63.81 Intermittent explosive disorder (principal); F11.23 Opioid dependence with withdrawal; F17.210 Nicotine dependence, cigarettes, uncomplicated; I10 Essential (primary) hypertension; R73.02 Impaired glucose tolerance (oral); F19.10 Other psychoactive substance abuse, uncomplicated; F10.20 Alcohol dependence, uncomplicated; F43.10 Post-traumatic stress disorder, unspecified; R45.850 Homicidal ideations; F39 Unspecified mood [affective] disorder; G89.29 Other chronic pain; Z20.822 Contact with and (suspected) exposure to COVID-19
CPT/HCPCS: 36416; 80048; 80074; 80076; 80306; 80307; 82962; 83036; 84443; 85025; 87426; 96360; 96372; 97150; 97165; 99285; G0378; J2060; J7030

== ENCOUNTER 2021-03-12 20:27 | Inpatient (IN) | payer SELFPAY ==
[2021-03-12 20:43] VITALS: BP 115/92; PULSE 123; RESP 22; TEMP 36.8; O2SAT 97; BMI 32.5
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
--- NOTE | 2021-03-12 20:47 | PC.NURSE ---
[employer]ATCH [employer] SUPERVISOR in triage. sling and ice . placed on pt.
[2021-03-12 22:14] VITALS: BP 133/77; PULSE 115; RESP 20; O2SAT 96
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
[2021-03-12 22:53] LABS: Add Urine Microscopic? NO; Charge for UA Resulting for Rev
[2021-03-12 22:55] LABS: Basophils % 0.2 %; Eosinophils % 0.1 %; Hematocrit 49.4 % (42.0-52.0); Hemoglobin 17.1 g/dL (11.7-16.6); Lymphocytes # 2.8 10^3/uL (0.8-4.8); Lymphocytes % 15.6 %; Mean Corpuscular HGB Conc 34.6 g/dL (30.0-36.0); Mean Corpuscular Hemoglobin 31.6 pg (28.0-34.0); Mean Corpuscular Volume 91.3 fl (80-94); Mean Platelet Volume 10.2 fL (7.4-10.4); Monocytes # 0.9 10^3/uL (0.2-0.9); Monocytes % 4.9 %; Neutrophils # 14.21 10^3/uL (1.8-7.7); Neutrophils % 78.9 %; Nucleated Red Blood Cells % 0 %; Platelet Count 307 10^3/cmm (130-400); Red Blood Count 5.41 10^6/uL (4.1-5.3); Red Cell Distribution Width 12.5 % (12.1-15.1)
[2021-03-12] MEDS: HYDROcodone-acetaminophen 5-325 mg Tablet 1 TAB PO (23:01)
[2021-03-12] MEDS: ziprasidone 20 mg/mL SDV IM (23:04)
[2021-03-12 23:12] LABS: Bilirubin Urine Neg (Negative); Blood Urine Neg (Negative); Glucose Urine UA Norm (Normal); Ketones Urine Negative (Negative); Leukocyte Esterase Urine Negative (Negative); Nitrate Urine Negative (Negative); Protein Urine Neg (Negative); Urine Appearance Clear (CLEAR); Urine Color Yellow (Yellow); Urobilinogen Urine Norm (Negative); pH Urine 6 (5-7)
[2021-03-12 23:21] LABS: Amphetamines Screen Urine Positive (Negative); Barbiturates Screen Urine Negative (Negative); Benzodiazepines Screen Urine Positive (Negative); Cocaine Screen Urine Negative (Negative); Opiate Screen Urine Negative (Negative); PCP Screen Urine Negative (Negative); THC Screen Urine Positive (Negative)
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
[2021-03-12 23:44] LABS: Acetaminophen < 5.0 ug/mL (10-30); Alanine Aminotransferase 59 U/L (0-41); Albumin Level 4.4 g/dL (3.5-5.2); Alcohol Level < 10 mg/dL (0-10); Alkaline Phosphatase 100 IU/L (40-130); Anion Gap 16.1 (5-19); Aspartate Amino Transferase 28 U/L (0-40); Blood Urea Nitrogen 17 mg/dL (6-20); Calcium 9.5 mg/dL (8.5-10.5); Carbon Dioxide 23 mmol/L (22-29); Chloride 102 mmol/L (98-107); Globulin 3.4 g/dL (1.3-4.6); Glomerular Filtration Rate 129.1 mL/min (90-130); Glucose 111 mg/dL (65-115); Osmolality Calculated 286 mOsm/kg (285-295); Potassium 4.1 mmol/L (3.5-5.1); Salicylate < 0.3 mg/dL (3-10); Sodium 137 mmol/L (136-145); Thyroid Stimulating Hormone 1.09 uIU/mL (0.27-4.20); Total Bilirubin 0.2 mg/dL (0.15-1.2); Total Protein 7.8 g/dL (6.6-8.7)
[2021-03-13 01:17] VITALS: BP 108/54; RESP 15
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
[2021-03-13] MEDS: midazolam 1 mg/mL INJ 5 ML 5 MG IM (04:08)
[2021-03-13 05:31] VITALS: RESP 22
[2021-03-13] MEDS: morphine 4 mg/mL SDV 1 mL IM (05:31)
[2021-03-13] MEDS: hydroCHLOROthiazide 25 mg Tablet 12.5 MG PO (06:29)
[2021-03-13] MEDS: lisinopril 20 mg Tablet PO (06:29)
[2021-03-13 10:33] VITALS: BP 140/91; PULSE 94; RESP 17; TEMP 37.1; O2SAT 97
[2021-03-13] MEDS: folic acid 1 mg Tablet PO (12:48)
[2021-03-13] MEDS: paliperidone ER 6 mg Tablet PO (12:48)
[2021-03-13] MEDS: ibuprofen 600 mg Tablet PO ×2 (13:56→22:21)
[2021-03-13 14:00] VITALS: BP 136/77; PULSE 100; RESP 17; TEMP 36.8; O2SAT 95
[2021-03-13] MEDS: gabapentin 300 mg Capsule PO ×2 (14:16→22:21)
[2021-03-13] MEDS: OLANZapine 5 mg ODT PO ×2 (14:16→22:22)
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
[2021-03-13] MEDS: LORazepam 2 mg Tablet PO (16:47)
[2021-03-13] MEDS: nicotine 2 mg Gum BUCCAL (17:15)
[2021-03-13] MEDS: HYDROcodone-acetaminophen 5-325 mg Tablet 1 TAB PO (18:57)
[2021-03-13 20:26] VITALS: BP 130/96; PULSE 75; RESP 18; TEMP 36.6; O2SAT 98
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
[2021-03-13] MEDS: hyDROXYzine 25 mg Capsule 50 MG PO (22:21)
[2021-03-13] MEDS: trazodone 50 mg Tablet PO (22:22)
[2021-03-13] MEDS: acetaminophen 325 mg Tablet 650 MG PO (23:30)
[2021-03-14] MEDS: nicotine 2 mg Gum BUCCAL ×3 (00:21→14:48)
[2021-03-14] MEDS: HYDROcodone-acetaminophen 5-325 mg Tablet 1 TAB PO ×5 (02:33→20:59)
[2021-03-14] MEDS: trazodone 50 mg Tablet PO (02:35)
--- NOTE | 2021-03-14 04:27 | PC.NURSE ---
Patient given Trazpdone 50mg PO, Visteril 50 mg PO at patient request for sleep and anxiety. Hampton 5/325 mg Po given for pain of left arm / shoulder. Zyprexa 5mg PO given meds were effective
[2021-03-14 06:00] VITALS: BP 146/90; PULSE 102; RESP 17; TEMP 36.6; O2SAT 98
[2021-03-14] MEDS: hydroCHLOROthiazide 25 mg Tablet 12.5 MG PO (08:16)
[2021-03-14] MEDS: lisinopril 20 mg Tablet PO (08:16)
[2021-03-14] MEDS: paliperidone ER 6 mg Tablet PO (08:16)
[2021-03-14] MEDS: folic acid 1 mg Tablet PO (08:16)
[2021-03-14] MEDS: gabapentin 300 mg Capsule PO ×3 (08:17→20:59)
[2021-03-14] MEDS: hyDROXYzine 25 mg Capsule 50 MG PO ×2 (11:30→20:59)
[2021-03-14] MEDS: LORazepam 2 mg Tablet PO (13:39)
[2021-03-14 14:00] VITALS: BP 132/73; PULSE 106; RESP 17; TEMP 36.3; O2SAT 97
[2021-03-14] MEDS: OLANZapine 5 mg ODT PO (18:26)
--- NOTE | 2021-03-14 19:27 | PM.NPN ---
Subjective NPU Subjective: Interval history: Patient presents today reporting that he is doing okay but that his addiction is doing the best of him. He also endorsed feeling that he is not sure if it is Invega is helpful. He reports he is been on Abilify nontraditional Geodon. He reports that he is willing to consider changing discussed the risk benefits and alternatives of switching his mood stabilizer and he understood agreed received in this note. Mental Status Exam MSE Comments: This is an obese white male in hospital scrubs with limited grooming and adequate eye contact. No abnormal movements except for mild psychomotor retardation. Cooperative with exam and no acute distress. Speech was decreased rate volume mood described as not stable, affect subdued. Thought process organized. Thought content: Patient denied suicidal or homicidal ideation, there were no delusions reported or noted, he denied any auditory or visual hallucinations. Attention and concentration were intact and memory is mostly reliable but none were formally tested. He is alert and oriented x3. Insight and judgment appear limited and impulse control is impaired. Vitals/I&O/Wt Last Vital Signs Temp 97.9 F 03/14/21 20:28 Pulse 90 03/14/21 20:28 Resp 18 03/14/21 20:28 BP 144/83 03/14/21 20:28 Pulse Ox 93 03/14/21 20:28 Data NPU : 03/12/21 22:48 03/12/21 22:48 A&P Additional A&P Information This is a 35 year old male with a past history of PTSD, mood disorder, intermittent explosive disorder, substance abuse, alcohol dependence, hyptertension, elevated glucose, and chronic pain, who presented to the ED a little more than than 24 hours after being discharged from the NPU. He requested admission to keep himself from hurting himself or others. He is unsure how to keep from drinking and using drugs outside a controlled environment. RECOMMENDATION AND PLAN: 1. Continue current medication. He is considering the possibility of trying Geodon as he is unclear if the Invega is effective. 2. Continue every 15 minute checks for safety. 3. Encourage individual, group and milieu therapies. 4. Encourage sober living treatment after discharge at the highest level of care to which he is willing to commit. Involuntary Hold Information 96 Hour Hold: 96 Hour Involuntary Admission: Yes 96 Hour Hold Ending Date: 03/08/21 96 Hour Hold Ending Time: 20:15 Attestations NPU Medical Necessity Statement*: Psychiatric hospitalization is medically necessary to prevent access to lethal means, to reevaluate medication, and to coordinate a safe discharge. Likely length of stay is 2 to 4 days. Coding Level of Care Code Acute Butter Liquefier for Shanika Robert
[2021-03-14 20:28] VITALS: BP 144/83; PULSE 90; RESP 18; TEMP 36.6; O2SAT 93
[2021-03-15] MEDS: nicotine 2 mg Gum BUCCAL ×5 (00:17→17:04)
--- NOTE | 2021-03-15 00:33 | PC.NURSE ---
PRN MEDIATIONS: PATIENT WAS GIVEN VISTERIL 50MG PO, NORCO 5-325MG PO AND NICORETTE GUM 2GM PO. UPON REASSESSMENT ALL BUT THE PAIN MEDICATION WAS EFFECTIVE. THIS NURSE ASSESSED PATIENT PAIN AND ASKED IF HE NEEDED TYLENOL OR MOTRIN AND LET HIM KNOW THAT THE NORCO WAS NOT DUE YET FOR ABOUT 45 MINUTES, PATIENT STATES HE DOES NOT WANT TO TAKE ANY PAIN MEDICATIONS BECAUSE THEY ARE NOT HELPING. WILL CONTINUE TO MONITOR AND ASSESS.
[2021-03-15] MEDS: ibuprofen 600 mg Tablet PO ×2 (03:27→15:23)
[2021-03-15] MEDS: HYDROcodone-acetaminophen 5-325 mg Tablet 1 TAB PO ×5 (03:27→21:51)
[2021-03-15] MEDS: hyDROXYzine 25 mg Capsule 50 MG PO ×2 (05:16→21:59)
[2021-03-15 06:00] VITALS: BP 142/84; PULSE 91; RESP 18; TEMP 36.7; O2SAT 99
[2021-03-15] MEDS: lisinopril 20 mg Tablet PO (08:50)
[2021-03-15] MEDS: hydroCHLOROthiazide 25 mg Tablet 12.5 MG PO (08:50)
[2021-03-15] MEDS: gabapentin 300 mg Capsule PO ×3 (08:50→21:41)
[2021-03-15] MEDS: folic acid 1 mg Tablet PO (08:50)
[2021-03-15] MEDS: paliperidone ER 6 mg Tablet PO (08:50)
[2021-03-15] MEDS: OLANZapine 5 mg ODT PO (10:49)
[2021-03-15] MEDS: haloperidol 5 mg Tablet PO (11:26)
--- NOTE | 2021-03-15 11:50 | PM.NPN ---
Subjective NPU Subjective: Interval history: Florencio presents today reporting that he feels a little better. He was having a conversation about moving forward with his thinking about discharge. He reports he is feeling a little better with the Geodon and we discussed the likelihood of discontinuing the Invega. After discussion of the risk benefits and alternatives he understood and agreed proceed as on his note. We agreed to talk in the morning about the possibility of discharge in the next 48 hours. Mental Status Exam MSE Comments: This is an obese white male in hospital scrubs with limited grooming and adequate eye contact. No abnormal movements except for mild psychomotor retardation. Cooperative with exam and no acute distress. Speech was decreased rate volume mood described as a little better, affect less subdued. Thought process organized. Thought content: Patient denied suicidal or homicidal ideation, there were no delusions reported or noted, he denied any auditory or visual hallucinations. Attention and concentration were intact and memory is mostly reliable but none were formally tested. He is alert and oriented x3. Insight and judgment appear limited, but improving and impulse control is limited. Vitals/I&O/Wt Last Vital Signs Temp 98.1 F 03/15/21 06:00 Pulse 91 03/15/21 06:00 Resp 18 03/15/21 06:00 BP 142/84 03/15/21 06:00 Pulse Ox 99 03/15/21 06:00 Data NPU : 03/12/21 22:48 03/12/21 22:48 A&P Assessment and plan (1) Intermittent explosive disorder in adult: Status: Chronic (2) Alcohol use disorder, moderate, dependence: Status: Chronic (3) Polysubstance abuse: Status: Chronic (4) Chronic pain: Status: Chronic (5) PTSD (post-traumatic stress disorder): Status: Chronic (6) Hypertension: Status: Acute (7) Elevated glucose: Status: Acute Additional A&P Information This is a 35 year old male with a past history of PTSD, mood disorder, intermittent explosive disorder, substance abuse, alcohol dependence, hyptertension, elevated glucose, and chronic pain, who presented to the ED a little more than than 24 hours after being discharged from the NPU. He requested admission to keep himself from hurting himself or others. He is unsure how to keep from drinking and using drugs outside a controlled environment. RECOMMENDATION AND PLAN: 1. Continue current medication. Start Geodon 40 mg p.o. twice daily with meals. 2. Continue every 15 minute checks for safety. 3. Encourage individual, group and milieu therapies. 4. Encourage sober living treatment after discharge at the highest level of care to which he is willing to commit. Involuntary Hold Information 96 Hour Hold: 96 Hour Involuntary Admission: Yes 96 Hour Hold Ending Date: 03/08/21 96 Hour Hold Ending Time: 20:15 Attestations NPU Medical Necessity Statement*: Psychiatric hospitalization is medically necessary to prevent access to lethal means, to reevaluate medication, and to coordinate a safe discharge. Likely length of stay is 1-3 days. Coding Level of Care Code Acute Chief Marketing Officer for Shanika Dumontd Diagnoses Intermittent explosive disorder in adult F63.81 Alcohol use disorder, moderate, dependence F10.20 Polysubstance abuse F19.10 Chronic pain G89.29 PTSD (post-traumatic stress disorder) F43.10 Hypertension I10 Elevated glucose R73.09
[2021-03-15 14:00] VITALS: BP 128/87; PULSE 73; RESP 18; TEMP 36.4; O2SAT 98
--- NOTE | 2021-03-15 14:26 | PC.RESP ---
SMOKING CESSATION INFORMATION SENT TO PATIENT.
[2021-03-15] MEDS: ziprasidone hcl 40 mg Capsule PO (16:50)
[2021-03-15 22:00] VITALS: BP 127/85; PULSE 84; RESP 17; TEMP 36.6; O2SAT 98
--- NOTE | 2021-03-15 23:55 | PC.NURSE ---
patient given vistaril 50mg for anxiety. Medication effective
[2021-03-16] MEDS: HYDROcodone-acetaminophen 5-325 mg Tablet 1 TAB PO ×2 (05:29→12:49)
[2021-03-16 06:00] VITALS: BP 152/87; PULSE 93; RESP 18; TEMP 37; O2SAT 99
[2021-03-16] MEDS: ziprasidone hcl 40 mg Capsule PO (06:30)
[2021-03-16] MEDS: gabapentin 300 mg Capsule PO ×2 (08:12→13:50)
[2021-03-16] MEDS: paliperidone ER 6 mg Tablet PO (08:13)
[2021-03-16] MEDS: hyDROXYzine 25 mg Capsule 50 MG PO (08:13)
[2021-03-16] MEDS: hydroCHLOROthiazide 25 mg Tablet 12.5 MG PO (08:13)
[2021-03-16] MEDS: folic acid 1 mg Tablet PO (08:13)
[2021-03-16] MEDS: lisinopril 20 mg Tablet PO (08:13)
[2021-03-16] MEDS: nicotine 2 mg Gum BUCCAL (11:13)
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
[2021-03-16] MEDS: LORazepam 2 mg Tablet PO (13:50)
[2021-03-16 14:00] VITALS: BP 137/69; PULSE 105; RESP 20; TEMP 36.4; O2SAT 95
== END 2021-03-16 15:04 | disposition home or self-care (01) | DRG 883 ==
LOC: ER 03-13 04:44 → NP 03-15 08:59
PROVIDERS: Nurse Practitioner Family; Admitting Provider Psychiatry & Neurology Child & Adolescent Psychiatry; Emergency Provider Emergency Medicine; Visit Provider Psychiatry & Neurology Child & Adolescent Psychiatry
DX: F63.81 Intermittent explosive disorder (principal); F43.12 Post-traumatic stress disorder, chronic; R73.02 Impaired glucose tolerance (oral); I10 Essential (primary) hypertension; G89.29 Other chronic pain; F19.10 Other psychoactive substance abuse, uncomplicated; F10.20 Alcohol dependence, uncomplicated; R45.850 Homicidal ideations; F17.200 Nicotine dependence, unspecified, uncomplicated; M79.622 Pain in left upper arm
CPT/HCPCS: 70450; 71101; 72125; 73060; 80053; 80306; 80307; 81003; 84443; 85025; 96372; 97150; 97165; J2250; J2270; J3486

== ENCOUNTER 2021-07-27 21:14 | Emergency (ER) | payer SELFPAY ==
[2021-07-27 21:15] VITALS: BP 122/93; PULSE 111; RESP 18; TEMP 37; O2SAT 98; BMI 31.1
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
--- NOTE | 2021-07-27 22:03 | PC.NURSE ---
Pt refusing all treatment at this time, pt has been evaluated by and wants to go home. so dr will discharge.
== END 2021-07-27 22:10 | disposition home or self-care (01) ==
PROVIDERS: Emergency Provider Emergency Medicine; PCP Family Medicine
DX: F63.81 Intermittent explosive disorder (principal); F10.20 Alcohol dependence, uncomplicated; F19.10 Other psychoactive substance abuse, uncomplicated; F17.200 Nicotine dependence, unspecified, uncomplicated
CPT/HCPCS: 99283

== ENCOUNTER 2021-10-15 13:05 | Inpatient (IN) | payer SELFPAY ==
[2021-10-15] VITALS (7 sets, daily range): BP systolic 137–193; BP diastolic 88–110; PULSE 80–115; RESP 16–24; TEMP 36.6–37.1; O2SAT 91–99
--- NOTE | 2021-10-15 13:54 | ED.C_ITS ---
Documented by User: SHAW Cabrera 10/15/21 15:26 HPI - Psych General: Chief Complaint: Psychiatric Symptoms Stated Complaint: Psych Symtoms Time Seen by Provider: 10/15/21 13:30 Source: patient Mode of arrival: ambulatory Limitations: altered mental status History of Present Illness: Patient is a 36-year-old male who presents to ED today after he was dropped off here by a friend. Patient during my initial assessment does not seem to be able to tell me any specific reasons for why he is here. He begins talking about machines and tracers being injected into his arm that are moving to his brain. He is extremely hard to follow as nothing he states makes sense. 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 He states that people are trying to send him messages through his eyes which are causing them to burn. Patient apparently was seen in our facility in July for bizarre behaviors but because he mentioned he was not suicidal he was let go. He has been hospitalized at [facility] previously. MD complaint: altered mental status and other (psychosis) Associated psychiatric symptoms: racing thoughts and delusions Review of Systems General: Reports: ROS unobtainable due to mental status [facility] ED PFSH: Medical History Abnormal gait Alcohol use disorder, moderate, dependence Chronic back pain Chronic pain GERD without esophagitis Intermittent explosive disorder in adult Neuropathy Polysubstance abuse PTSD (post-traumatic stress disorder) Surgical History History of appendectomy History of appendectomy History of back surgery History of back surgery Family History Other CAD (coronary artery disease) No significant past medical history Social History Smoking and tobacco status: current every day smoker Alcohol intake: current Alcohol intake frequency: 3 or more drinks per day Desire information about alcohol rehabilitation?: No Counseling given: No Desire information about substance/drug rehabilitation?: No Counseling given: No Adopted: No Caregiver/support person: No Lives independently: Yes Household members: spouse Marital status: History of recent travel: No Current gender identity: Male Physical Exam Const: COMMON NORMALS: alert EXAM LIMITATIONS: altered mental status (psychosis) GENERAL APPEARANCE: cooperative NUTRITIONAL APPEARANCE: overweight HENMT: COMMON NORMALS: normocephalic and atraumatic HEAD & SCALP: normocephalic and atraumatic Resp: COMMON NORMALS: normal respiratory effort and clear to auscultation bilaterally AUSCULTATION: clear to auscultation bilaterally Cardio: COMMON NORMALS: regular rate and regular rhythm RATE: regular rate RHYTHM: regular rhythm Neuro: ANGEL COMA SCALE: document GCS findings [place] coma scale eye opening: Spontaneous Angel coma scale verbal response: Orientated [place] coma scale motor response: Obey commands Angel coma scale total score: 15 SENSORIUM/ORIENTATION: Yes alert Psych: APPEARANCE: Yes grossly normal ATTITUDE: Yes paranoid and Yes bizarre ACTIVITY/MOTOR BEHAVIOR: Yes Avoids eye contact (attititude/behavior) THOUGHT PROCESS: disorganized MEMORY/COGNITION: Yes cognition grossly impaired INSIGHT: Poor insight present (Psych) JUDGEMENT: Limited judgement present (Psych) Course Consultations: Consultation #1: Dr. Mauricio-accepts to [facility] pending lab clearance Vital Signs: Vital signs: Vital Signs Temperature 98.8 F 10/15/21 13:38 Pulse Rate 94 10/15/21 14:54 Respiratory Rate 16 10/15/21 14:54 Blood Pressure 137/88 10/15/21 14:54 Pulse Oximetry 91 10/15/21 14:54 MDM - Psych Medical Decision Making Initial hypertension and tachycardia has resolved upon arrival. Patient's UDS positive for amphetamines and marijuana. He is cleared medically. Affidavit placed on patient's chart due to acute psychosis. Case reviewed with Dr. Mauricio who accepts to [facility]. Lab Data : 10/15/21 13:35 10/15/21 13:35 Laboratory Results WBC 18.9 10^3/uL (4.0-10.0) H 10/15/21 13:35 RBC 5.87 10^6/uL (4.1-5.3) H 10/15/21 13:35 Hgb 18.2 g/dL (11.7-16.6) H 10/15/21 13:35 Hct 52.7 % (42.0-52.0) H 10/15/21 13:35 MCV 89.8 fl (80-94) 10/15/21 13:35 MCH 31.0 pg (28.0-34.0) 10/15/21 13:35 MCHC 34.5 g/dL (30.0-36.0) 10/15/21 13:35 RDW 13.0 % (12.1-15.1) 10/15/21 13:35 Plt Count 325 10^3/cmm (130-400) 10/15/21 13:35 MPV 10.6 fL (7.4-10.4) H 10/15/21 13:35 Neut % (Auto) 67.9 % 10/15/21 13:35 Lymph % (Auto) 23.8 % 10/15/21 13:35 [place] % (Auto) 7.6 % 10/15/21 13:35 Eos % (Auto) 0.2 % 10/15/21 13:35 Baso % (Auto) 0.2 % 10/15/21 13:35 Neut # (Auto) 12.82 10^3/uL (1.8-7.7) H 10/15/21 13:35 Lymph # (Auto) 4.5 10^3/uL (0.8-4.8) 10/15/21 13:35 [place] # (Auto) 1.4 10^3/uL (0.2-0.9) H 10/15/21 13:35 Eos # (Auto) 0.0 10^3/uL (0.0-0.8) 10/15/21 13:35 Baso # (Auto) 0.0 10^3/uL (0.0-0.1) 10/15/21 13:35 Nucleated RBC % (auto) 0 % 10/15/21 13:35 Nucleated RBCs # 0.0 /100WBC 10/15/21 13:35 Sodium 137 mmol/L (136-145) 10/15/21 13:35 Potassium 3.6 mmol/L (3.5-5.1) 10/15/21 13:35 Chloride 99 mmol/L (98-107) 10/15/21 13:35 Carbon Dioxide 22 mmol/L (22-29) 10/15/21 13:35 Anion Gap 19.6 (5-19) H 10/15/21 13:35 BUN 14 mg/dL (6-20) 10/15/21 13:35 Creatinine 0.7 mg/dL (0.7-1.2) 10/15/21 13:35 GFR Calculation 128.3 mL/min (90-130) 10/15/21 13:35 Glucose 114 mg/dL (65-115) 10/15/21 13:35 Calculated Osmolality 285 mOsm/kg (285-295) 10/15/21 13:35 Calcium 9.9 mg/dL (8.5-10.5) 10/15/21 13:35 Total Bilirubin 1.1 mg/dL (0.15-1.2) 10/15/21 13:35 AST 55 U/L (0-40) H 10/15/21 13:35 ALT 50 U/L (0-41) H 10/15/21 13:35 Alkaline Phosphatase 120 IU/L (40-130) 10/15/21 13:35 Total Protein 8.7 g/dL (6.6-8.7) 10/15/21 13:35 Albumin 5.1 g/dL (3.5-5.2) 10/15/21 13:35 Globulin 3.6 g/dL (1.3-4.6) 10/15/21 13:35 Salicylates < 0.3 mg/dL (3-10) L 10/15/21 13:35 Urine Opiates Screen Negative ng/mL (Negative) 10/15/21 14:30 Acetaminophen < 5.0 ug/mL (10-30) L 10/15/21 13:35 Ur Barbiturates Screen Negative ng/mL (Negative) 10/15/21 14:30 Ur Phencyclidine Scrn Negative ng/mL (Negative) 10/15/21 14:30 Ur Amphetamines Screen Positive ng/mL (Negative) H 10/15/21 14:30 U Benzodiazepines Scrn Negative ng/mL (Negative) 10/15/21 14:30 Urine Cocaine Screen Negative ng/mL (Negative) 10/15/21 14:30 U Marijuana (THC) Screen Positive ng/mL (Negative) H 10/15/21 14:30 Ethyl Alcohol < 10 mg/dL (0-10) 10/15/21 13:35 Discharge Plan Discharge Patient Disposition: Admitted As Inpatient Clinical Impression: Acute psychosis, Polysubstance abuse Condition: Stable Coding Level of Care Code ED Buckle Sorter for Chg Fwd Exam Detailed Documented by User: Chas Greene DO 10/15/21 15:28 HPI - Psych General: Chief Complaint: Psychiatric Symptoms Stated Complaint: Psych Symtoms Time Seen by Provider: 10/15/21 13:30 PFSH ED PFSH: Medical History Abnormal gait Alcohol use disorder, moderate, dependence Chronic back pain Chronic pain GERD without esophagitis Intermittent explosive disorder in adult Neuropathy Polysubstance abuse PTSD (post-traumatic stress disorder) Surgical History History of appendectomy History of appendectomy History of back surgery History of back surgery Family History Other CAD (coronary artery disease) No significant past medical history Social History Smoking and tobacco status: current every day smoker Alcohol intake: current Alcohol intake frequency: 3 or more drinks per day Desire information about alcohol rehabilitation?: No Counseling given: No Desire information about substance/drug rehabilitation?: No Counseling given: No Adopted: No Caregiver/support person: No Lives independently: Yes Household members: spouse Marital status: History of recent travel: No Current gender identity: Male Physical Exam Neuro: ANGEL COMA SCALE: document GCS findings [place] coma scale total score: 15 Course Vital Signs: Vital signs: Vital Signs Temperature 98.8 F 10/15/21 13:38 Pulse Rate 94 10/15/21 14:54 Respiratory Rate 16 10/15/21 14:54 Blood Pressure 137/88 10/15/21 14:54 Pulse Oximetry 91 10/15/21 14:54 MDM - Psych Lab Data : 10/15/21 13:35 10/15/21 13:35 Laboratory Results WBC 18.9 10^3/uL (4.0-10.0) H 10/15/21 13:35 RBC 5.87 10^6/uL (4.1-5.3) H 10/15/21 13:35 Hgb 18.2 g/dL (11.7-16.6) H 10/15/21 13:35 Hct 52.7 % (42.0-52.0) H 10/15/21 13:35 MCV 89.8 fl (80-94) 10/15/21 13:35 MCH 31.0 pg (28.0-34.0) 10/15/21 13:35 MCHC 34.5 g/dL (30.0-36.0) 10/15/21 13:35 RDW 13.0 % (12.1-15.1) 10/15/21 13:35 Plt Count 325 10^3/cmm (130-400) 10/15/21 13:35 MPV 10.6 fL (7.4-10.4) H 10/15/21 13:35 Neut % (Auto) 67.9 % 10/15/21 13:35 Lymph % (Auto) 23.8 % 10/15/21 13:35 [place] % (Auto) 7.6 % 10/15/21 13:35 Eos % (Auto) 0.2 % 10/15/21 13:35 Baso % (Auto) 0.2 % 10/15/21 13:35 Neut # (Auto) 12.82 10^3/uL (1.8-7.7) H 10/15/21 13:35 Lymph # (Auto) 4.5 10^3/uL (0.8-4.8) 10/15/21 13:35 [place] # (Auto) 1.4 10^3/uL (0.2-0.9) H 10/15/21 13:35 Eos # (Auto) 0.0 10^3/uL (0.0-0.8) 10/15/21 13:35 Baso # (Auto) 0.0 10^3/uL (0.0-0.1) 10/15/21 13:35 Nucleated RBC % (auto) 0 % 10/15/21 13:35 Nucleated RBCs # 0.0 /100WBC 10/15/21 13:35 Sodium 137 mmol/L (136-145) 10/15/21 13:35 Potassium 3.6 mmol/L (3.5-5.1) 10/15/21 13:35 Chloride 99 mmol/L (98-107) 10/15/21 13:35 Carbon Dioxide 22 mmol/L (22-29) 10/15/21 13:35 Anion Gap 19.6 (5-19) H 10/15/21 13:35 BUN 14 mg/dL (6-20) 10/15/21 13:35 Creatinine 0.7 mg/dL (0.7-1.2) 10/15/21 13:35 GFR Calculation 128.3 mL/min (90-130) 10/15/21 13:35 Glucose 114 mg/dL (65-115) 10/15/21 13:35 Calculated Osmolality 285 mOsm/kg (285-295) 10/15/21 13:35 Calcium 9.9 mg/dL (8.5-10.5) 10/15/21 13:35 Total Bilirubin 1.1 mg/dL (0.15-1.2) 10/15/21 13:35 AST 55 U/L (0-40) H 10/15/21 13:35 ALT 50 U/L (0-41) H 10/15/21 13:35 Alkaline Phosphatase 120 IU/L (40-130) 10/15/21 13:35 Total Protein 8.7 g/dL (6.6-8.7) 10/15/21 13:35 Albumin 5.1 g/dL (3.5-5.2) 10/15/21 13:35 Globulin 3.6 g/dL (1.3-4.6) 10/15/21 13:35 Salicylates < 0.3 mg/dL (3-10) L 10/15/21 13:35 Urine Opiates Screen Negative ng/mL (Negative) 10/15/21 14:30 Acetaminophen < 5.0 ug/mL (10-30) L 10/15/21 13:35 Ur Barbiturates Screen Negative ng/mL (Negative) 10/15/21 14:30 Ur Phencyclidine Scrn Negative ng/mL (Negative) 10/15/21 14:30 Ur Amphetamines Screen Positive ng/mL (Negative) H 10/15/21 14:30 U Benzodiazepines Scrn Negative ng/mL (Negative) 10/15/21 14:30 Urine Cocaine Screen Negative ng/mL (Negative) 10/15/21 14:30 U Marijuana (THC) Screen Positive ng/mL (Negative) H 10/15/21 14:30 Ethyl Alcohol < 10 mg/dL (0-10) 10/15/21 13:35 Discharge Plan Discharge Patient Disposition: Admitted As Inpatient Clinical Impression: Acute psychosis, Polysubstance abuse Condition: Stable Coding Level of Care Code ED Buckle Sorter for Shanika Fwcaitlyn Exam Detailed
[2021-10-15 14:04] LABS: Basophils % 0.2 %; Eosinophils % 0.2 %; Hematocrit 52.7 % (42.0-52.0); Hemoglobin 18.2 g/dL (11.7-16.6); Lymphocytes # 4.5 10^3/uL (0.8-4.8); Lymphocytes % 23.8 %; Mean Corpuscular HGB Conc 34.5 g/dL (30.0-36.0); Mean Corpuscular Volume 89.8 fl (80-94); Mean Platelet Volume 10.6 fL (7.4-10.4); Monocytes # 1.4 10^3/uL (0.2-0.9); Monocytes % 7.6 %; Neutrophils # 12.82 10^3/uL (1.8-7.7); Neutrophils % 67.9 %; Nucleated Red Blood Cells % 0 %; Platelet Count 325 10^3/cmm (130-400); Red Blood Count 5.87 10^6/uL (4.1-5.3); White Blood Count 18.9 10^3/uL (4.0-10.0)
[2021-10-15 14:13] LABS: Alanine Aminotransferase 50 U/L (0-41); Albumin Level 5.1 g/dL (3.5-5.2); Alkaline Phosphatase 120 IU/L (40-130); Anion Gap 19.6 (5-19); Aspartate Amino Transferase 55 U/L (0-40); Blood Urea Nitrogen 14 mg/dL (6-20); Calcium 9.9 mg/dL (8.5-10.5); Carbon Dioxide 22 mmol/L (22-29); Chloride 99 mmol/L (98-107); Globulin 3.6 g/dL (1.3-4.6); Glomerular Filtration Rate 128.3 mL/min (90-130); Glucose 114 mg/dL (65-115); Osmolality Calculated 285 mOsm/kg (285-295); Potassium 3.6 mmol/L (3.5-5.1); Sodium 137 mmol/L (136-145); Total Bilirubin 1.1 mg/dL (0.15-1.2); Total Protein 8.7 g/dL (6.6-8.7)
[2021-10-15 14:20] LABS: Acetaminophen < 5.0 ug/mL (10-30); Alcohol Level < 10 mg/dL (0-10); Salicylate < 0.3 mg/dL (3-10)
[2021-10-15] MEDS: hyDRALAzine 25 mg Tablet PO (14:25)
--- NOTE | 2021-10-15 14:38 | PC.PHAR ---
pt states he takes care of is own medications-pt states he doesnt take lisinopril-hctz 20-12.5mg 2 tabs daily last filled 05/01/21 30d/s-lorazepam 2mg bid filled 05/30/21-invega 12mg qam filled 05/01/21 and protonix 20mg daily rx filled 05/01/22-
[2021-10-15 14:44] LABS: Amphetamines Screen Urine Positive (Negative); Barbiturates Screen Urine Negative (Negative); Benzodiazepines Screen Urine Negative (Negative); Cocaine Screen Urine Negative (Negative); Opiate Screen Urine Negative (Negative); PCP Screen Urine Negative (Negative); THC Screen Urine Positive (Negative)
--- NOTE | 2021-10-15 17:25 | PC.NURSE ---
Report called to [facility], they request we delay transfer for 20 minutes d/t they have an ambulance there now.
--- NOTE | 2021-10-15 21:50 | PC.ADMIT ---
Admission Note: Patient is a 36-year-old male who presents to ED today after he was dropped off here by a friend. Patient during my initial assessment does not seem to be able to tell me any specific reasons for why he is here. He begins talking about machines and tracers being injected into his arm that are moving to his brain. He is extremely hard to follow as nothing he states makes sense. 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 He states that people are trying to send him messages through his eyes which are causing them to burn. Patient apparently was seen in our facility in July for bizarre behaviors but because he mentioned he was not suicidal he was let go. He has been hospitalized at [facility] previously. Patient is unclear in his thinking and speech. This flex o writer operator was unable to get any sense of what the patient was trying to say other than he is investigating and that he has a light that is burning his skin. He also mentioned snake whisperers and that someone drained all the blood out of his body and drank it. Per the affidavit the patient thinks people are injecting tracers into his arm so they can track/control him. He also thinks that people are trying to send him messages through his eyes which is causing them to burn. The patient,Florencio Mejias,36 y/o, was given written information regarding hospital policies, unit procedures and contact persons. Patient's smoking status: current every day smoker. Vital Signs - 8 hr 10/15/21 13:53 10/15/21 14:54 10/15/21 18:44 Temperature 98 F Pulse Rate 94 96 Respiratory Rate 24 H 16 18 Blood Pressure 186/101 137/88 169/96 Pulse Oximetry 99 91 96 10/15/21 19:50 10/15/21 21:10 Temperature 98.0 F 98.0 F Pulse Rate 80 80 Respiratory Rate 17 17 Blood Pressure 149/99 149/99 Pulse Oximetry 93 93
[2021-10-16 06:00] VITALS: BP 126/79; PULSE 75; RESP 16; TEMP 36.4; O2SAT 98
[2021-10-16] MEDS: gabapentin 300 mg Capsule 600 MG PO ×3 (08:46→21:08)
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
[2021-10-16 14:00] VITALS: BP 131/86; PULSE 77; RESP 16; TEMP 36.7; O2SAT 98
[2021-10-16 20:57] VITALS: BP 169/79; PULSE 73; RESP 18; TEMP 36.7; O2SAT 98
[2021-10-17 06:00] VITALS: BP 145/94; PULSE 81; RESP 18; TEMP 36.7; O2SAT 96
--- NOTE | 2021-10-17 08:11 | W.PM.NPUPNS ---
Subjective [facility] Subjective: He is agitated this morning. He says he has no reason to be here. The ER already sucked out his brain with their machine. He became agitated and needed medication when I told him that we were not going to discharge him today. He did not seem to respond to the Invega last time and they gave him Geodon 40 mg and thought that he had some response. Mental Status Exam MSE Comments: This is a 36-year-old overweight male who is in no acute distress. He is fairly well groomed and in hospital scrubs. He ran me down as I was going into the nurses station saying that he had to leave. He needs a shower and his room smells. Eye contact is poor. psychomotor activity is normal. Speech is at a regular rate and rhythm, normal volume, good articulation, not pressured. Alert, oriented X3 Attention and concentration appears to be normal. Memory is intact Mood is irritated. Affect is angry. Thought process is logical and goal-directed. Thought content: Denies auditory and visual hallucinations. He is delusional about the emergency room sucking out his brain with the machine. No current suicidal ideation. He denies homicidal ideation. Fund of knowledge is average. Insight and judgment appear to be poor. Impulse control is poor. Cognition: Patient Appearance: Appropriate Level of Consciousness: Awake, Alert and Appropriate Patient Cognition Impaired: Yes Ability to Follow Directions: Good Patient Orientation (long list): Person and Name Comprehension Ability: Moderate Impairment Hallucination Type: None Delusion Description: Paranoid Ideation Thought Process: Indecisive Affect: Affect Description: Appropriate Behavior: Patient Behavior: Appropriate Speech Pattern: Appropriate Vitals/I&O/Wt Last Vital Signs Temp 98.1 F 10/17/21 06:00 Pulse 81 10/17/21 06:00 Resp 18 10/17/21 06:00 BP 145/94 10/17/21 06:00 Pulse Ox 96 10/17/21 06:00 Weight last 48 hrs Weight 97.522 kg Data [facility] : 10/15/21 13:35 10/15/21 13:35 A&P Assessment and plan (1) Acute psychosis: Status: Acute (2) Intermittent explosive disorder in adult: Status: Chronic (3) Alcohol use disorder, moderate, dependence: Status: Chronic (4) Polysubstance abuse: Status: Chronic (5) PTSD (post-traumatic stress disorder): Status: Chronic (6) Methamphetamine abuse: Status: Acute Plan This is a 36-year-old male with previous diagnosis of intermittent explosive disorder, PTSD and polysubstance abuse who comes in psychotic and positive for methamphetamine. His psychosis is not improving as it frequently does with methamphetamine. Plan: 1. We will observe only on his gabapentin 600 mg 3 times daily for now. We will add Geodon 40 mg twice daily 2. Continue every 15 minute checks for safety. 3. Encourage individual, group and milieu therapies. 4. Encourage sober living treatment after discharge at the highest level of care to which he is willing to commit. 5. We will monitor for safety for himself in the community prior to discharge. Involuntary Hold Information 96 Hour Hold: 96 Hour Involuntary Admission: No 96 Hour Hold Ending Date: 03/08/21 96 Hour Hold Ending Time: 20:15 Attestations U Medical Necessity Statement*: Inpatient hospitalization is medically necessary and the clinically appropriate intervention at this time. We will initiate medications and make changes as indicated. Coding Level of Care Code Acute Adolescent Specialist for [facility] Diagnoses Acute psychosis F23 Intermittent explosive disorder in adult F63.81 Alcohol use disorder, moderate, dependence F10.20 Polysubstance abuse F19.10 PTSD (post-traumatic stress disorder) F43.10 Methamphetamine abuse F15.10
[2021-10-17] MEDS: gabapentin 300 mg Capsule 600 MG PO ×3 (08:13→21:11)
[2021-10-17] MEDS: OLANZapine 5 mg ODT PO (08:13)
[2021-10-17 14:00] VITALS: BP 180/95; PULSE 74; RESP 16; TEMP 36.4; O2SAT 98
[2021-10-17] MEDS: ziprasidone hcl 40 mg Capsule PO (16:51)
[2021-10-17] MEDS: hyDROXYzine 25 mg Capsule 50 MG PO (17:29)
[2021-10-17] MEDS: nicotine 2 mg Gum BUCCAL (17:30)
[2021-10-17 20:41] VITALS: BP 150/78; PULSE 77; RESP 17; TEMP 36.7; O2SAT 98
[2021-10-17] MEDS: trazodone 50 mg Tablet PO (21:11)
[2021-10-18 06:00] VITALS: BP 154/97; PULSE 93; RESP 19; TEMP 36.6; O2SAT 96
[2021-10-18] MEDS: ziprasidone hcl 40 mg Capsule PO ×2 (06:03→16:36)
[2021-10-18] MEDS: gabapentin 300 mg Capsule 600 MG PO ×3 (08:23→20:35)
[2021-10-18] MEDS: nicotine 2 mg Gum BUCCAL ×4 (08:23→18:14)
[2021-10-18] MEDS: haloperidol 5 mg Tablet PO (10:18)
[2021-10-18 14:00] VITALS: BP 138/97; PULSE 88; RESP 17; TEMP 36.4; O2SAT 97
--- NOTE | 2021-10-18 14:05 | P.NPUPN_ITS ---
Subjective [facility] Subjective: He says that he is doing significantly better. He says it is partly because he is acknowledged the reason why he is here. He said it was partying too hard and partying with the wrong people. He says that he has partied with the Klan and they are hard to avoid. I said something about metham phetamine and he said that he did not use methamphetamine. He said that is why I got offended the other day when he mentions something about that. Mental Status Exam MSE Comments: This is a 36-year-old overweight male who is in no acute distress. He is fairly well groomed and in hospital scrubs. He is more pleasant and cooperative. eye contact is good. psychomotor activity is normal. Speech is at a regular rate and rhythm, normal volume, good articulation, not pressured. Alert, oriented X3 Attention and concentration appears to be normal. Memory is intact Mood is good. Affect is euthymic. Thought process is logical and goal-directed. Thought content: Denies auditory and visual hallucinations. He did not report any delusional material today. No current suicidal ideation. He denies homicidal ideation. Fund of knowledge is average. Insight and judgment appear to be poor. Impulse control is poor. Cognition: Patient Appearance: Appropriate Level of Consciousness: Awake, Alert and Appropriate Patient Cognition Impaired: Yes Ability to Follow Directions: Good Patient Orientation (long list): Person and Name Comprehension Ability: Moderate Impairment Hallucination Type: None Delusion Description: Paranoid Ideation Thought Process: Indecisive Affect: Affect Description: Appropriate Behavior: Patient Behavior: Appropriate and Cooperative Speech Pattern: Appropriate and Clear Vitals/I&O/Wt Last Vital Signs Temp 97.9 F 10/18/21 06:00 Pulse 93 10/18/21 06:00 Resp 19 H 10/18/21 06:00 BP 154/97 10/18/21 06:00 Pulse Ox 96 10/18/21 06:00 Data [facility] : 10/15/21 13:35 10/15/21 13:35 A&P Assessment and plan (1) Acute psychosis: Status: Acute (2) Intermittent explosive disorder in adult: Status: Chronic (3) Alcohol use disorder, moderate, dependence: Status: Chronic (4) Polysubstance abuse: Status: Chronic (5) PTSD (post-traumatic stress disorder): Status: Chronic (6) Methamphetamine abuse: Status: Acute Plan This is a 36-year-old male with previous diagnosis of intermittent explosive disorder, PTSD and polysubstance abuse who comes in psychotic and positive for methamphetamine. His psychosis is not improving as it frequently does with methamphetamine. Plan: 1. We will observe only on his gabapentin 600 mg 3 times daily for now. We will add Geodon 40 mg twice daily 2. Continue every 15 minute checks for safety. 3. Encourage individual, group and milieu therapies. 4. Encourage sober living treatment after discharge at the highest level of care to which he is willing to commit. 5. We will monitor for safety for himself in the community prior to discharge. Involuntary Hold Information 96 Hour Hold: 96 Hour Involuntary Admission: No 96 Hour Hold Ending Date: 03/08/21 96 Hour Hold Ending Time: 20:15 Attestations U Medical Necessity Statement*: Inpatient hospitalization is medically necessary and the clinically appropriate intervention at this time. We will initiate medications and make changes as indicated. Coding Level of Care Code Acute Communications Systems Engineer for [facility] Diagnoses Acute psychosis F23 Intermittent explosive disorder in adult F63.81 Alcohol use disorder, moderate, dependence F10.20 Polysubstance abuse F19.10 PTSD (post-traumatic stress disorder) F43.10 Methamphetamine abuse F15.10
[2021-10-18] MEDS: OLANZapine 5 mg ODT PO (19:18)
[2021-10-18] MEDS: trazodone 50 mg Tablet PO (20:35)
[2021-10-18 20:50] VITALS: BP 142/88; PULSE 83; RESP 17; TEMP 37; O2SAT 98
[2021-10-19 06:00] VITALS: BP 134/73; PULSE 81; RESP 17; TEMP 36.9; O2SAT 98
[2021-10-19] MEDS: ziprasidone hcl 40 mg Capsule PO (06:37)
[2021-10-19] MEDS: gabapentin 300 mg Capsule 600 MG PO (08:13)
[2021-10-19] MEDS: nicotine 2 mg Gum BUCCAL ×2 (08:13→10:05)
--- NOTE | 2021-10-19 10:35 | P.NPUDS_ITS ---
Diagnoses at Discharge Discharge Diagnosis (1) Acute psychosis: Status: Acute (2) Intermittent explosive disorder in adult: Status: Chronic (3) Alcohol use disorder, moderate, dependence: Status: Chronic (4) Polysubstance abuse: Status: Chronic (5) PTSD (post-traumatic stress disorder): Status: Chronic (6) Methamphetamine abuse: Status: Acute Reason for Visit Reason for Visit: Psych Symtoms Brief History: History of Present Illness Florencio Mejias is a 36 year old male admitted to our emergency department with the following report: Patient is a 36-year-old male who presents to ED today after he was dropped off here by a friend.? Patient during my initial assessment does not seem to be able to tell me any specific reasons for why he is here.? He begins talking about machines and tracers being injected into his arm that are moving to his brain.? He is extremely hard to follow as nothing he states makes sense. 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 He states that people are trying to send him messages through his eyes which are causing them to burn.? Patient apparently was seen in our facility in July for bizarre behaviors but because he mentioned he was not suicidal he was let go.? [facility].? MD complaint: altered mental status and other (psychosis) Associated psychiatric symptoms: racing thoughts and delusions He was admitted for definitive treatment of these issues.? He says he lost his brain and was out of it yesterday.? He said that he got into it with some fritz- Nazis and also the police.? He says that he does not need help stopping methamphetamine.? He said that we could give him some Adderall which he is sure would help.? He said that he was on Vyvanse 80 mg some years ago and it was very helpful.? He did not want to talk about any past history.? He did not want to talk about anxiety or depression.? He does not want to take the medications that were given to him previously.? He just wants to wait and let the methamphetamine get out of his system. Hospital Course Hospital Course He slowly acclimated to the individual, group and milieu therapies provided. He was initially observed only on as needed medications. However he continued to be psychotic. He was restarted on Geodon 40 mg that he had been on previously and things got better. He claimed that the methamphetamine that was in his system must have been in some of the cigars that they were passing around at the constitution party. He tolerated these doses and showed steady improvement during his stay. He was able to contract for safety outside hospital prior to discharge. During the hospitalization, patient had routine laboratory studies which were within normal limits except for few outliers. Additionally there was a general medical evaluation which was also within normal limits and revealed no new acute processes. Discharge Summary: At the time of discharge, lethality was denied and psychosis was resolving. Mood and anxiety were well managed. Patient endorsed a plan to follow-up with the aftercare recommendations of the treatment team. Patient was evaluated and deemed to be absent credible lethality, and had achieved the maximum benefit from an inpatient hospitalization, so was discharged. Involuntary Hold Information 96 Hour Hold: 96 Hour Involuntary Admission: No 96 Hour Hold Ending Date: 03/08/21 96 Hour Hold Ending Time: 20:15 Mental Status Exam MSE Comments: This is a 36-year-old overweight male who is in no acute distress. He is fairly well groomed and in hospital scrubs. He is more pleasant and cooperative. eye contact is good. psychomotor activity is normal. Speech is at a regular rate and rhythm, normal volume, good articulation, not pressured. Alert, oriented X3 Attention and concentration appears to be normal. Memory is intact Mood is good. Affect is euthymic. Thought process is logical and goal-directed. Thought content: Denies auditory and visual hallucinations. He did not report any delusional material today. No current suicidal ideation. He denies homicidal ideation. Fund of knowledge is average. Insight and judgment appear to be poor. Impulse control is poor. Cognition: Patient Appearance: Appropriate Level of Consciousness: Awake, Alert and Appropriate Patient Cognition Impaired: Yes Ability to Follow Directions: Good Patient Orientation (long list): Person, Place and Name Comprehension Ability: Moderate Impairment Hallucination Type: None Delusion Description: Paranoid Ideation Thought Process: Indecisive Affect: Affect Description: Appropriate Behavior: Patient Behavior: Appropriate and Cooperative Speech Pattern: Appropriate and Clear Discharge Data Studies Completed and Pending: Laboratory Results WBC 18.9 10^3/uL (4.0 -10.0) H 10/15/21 13:35 RBC 5.87 10^6/uL (4.1 -5.3) H 10/15/21 13:35 Hgb 18.2 g/dL (11.7-1 6.6) H 10/15/21 13:35 Hct 52.7 % (42.0-52.0 ) H 10/15/21 13:35 MCV 89.8 fl (80-94) 10/15/21 13:35 MCH 31.0 pg (28.0-34. 0) 10/15/21 13:35 MCHC 34.5 g/dL (30.0-3 6.0) 10/15/21 13:35 RDW 13.0 % (12.1-15.1 ) 10/15/21 13:35 Plt Count 325 10^3/cmm (130 -400) 10/15/21 13:35 MPV 10.6 fL (7.4-10.4 ) H 10/15/21 13:35 Neut % (Auto) 67.9 % 10/15/21 13:35 Lymph % (Auto) 23.8 % 10/15/21 13:35 [place] % (Auto) 7.6 % 10/15/21 13:35 Eos % (Auto) 0.2 % 10/15/21 13:35 Baso % (Auto) 0.2 % 10/15/21 13:35 Neut # (Auto) 12.82 10^3/uL (1. 8-7.7) H 10/15/21 13:35 Lymph # (Auto) 4.5 10^3/uL (0.8- 4.8) 10/15/21 13:35 [place] # (Auto) 1.4 10^3/uL (0.2- 0.9) H 10/15/21 13:35 Eos # (Auto) 0.0 10^3/uL (0.0- 0.8) 10/15/21 13:35 Baso # (Auto) 0.0 10^3/uL (0.0- 0.1) 10/15/21 13:35 Nucleated RBC % (a uto) 0 % 10/15/21 13:35 Nucleated RBCs # 0.0 /100WBC 10/15/21 13:35 Sodium 137 mmol/L (136-1 45) 10/15/21 13:35 Potassium 3.6 mmol/L (3.5-5 .1) 10/15/21 13:35 Chloride 99 mmol/L (98-107 ) 10/15/21 13:35 Carbon Dioxide 22 mmol/L (22-29) 10/15/21 13:35 Anion Gap 19.6 (5-19) H 10/15/21 13:35 BUN 14 mg/dL (6-20) 10/15/21 13:35 Creatinine 0.7 mg/dL (0.7-1. 2) 10/15/21 13:35 GFR Calculation 128.3 mL/min (90- 130) 10/15/21 13:35 Glucose 114 mg/dL (65-115 ) 10/15/21 13:35 Calculated Osmolal ity 285 mOsm/kg (285- 295) 10/15/21 13:35 Calcium 9.9 mg/dL (8.5-10 .5) 10/15/21 13:35 Total Bilirubin 1.1 mg/dL (0.15-1 .2) 10/15/21 13:35 AST 55 U/L (0-40) H 10/15/21 13:35 ALT 50 U/L (0-41) H 10/15/21 13:35 Alkaline Phosphata se 120 IU/L (40-130) 10/15/21 13:35 Total Protein 8.7 g/dL (6.6-8.7 ) 10/15/21 13:35 Albumin 5.1 g/dL (3.5-5.2 ) 10/15/21 13:35 Globulin 3.6 g/dL (1.3-4.6 ) 10/15/21 13:35 Salicylates < 0.3 mg/dL (3-10 ) L 10/15/21 13:35 Urine Opiates Scre en Negative ng/mL (N egative) 10/15/21 14:30 Acetaminophen < 5.0 ug/mL (10-3 0) L 10/15/21 13:35 Ur Barbiturates Sc reen Negative ng/mL (N egative) 10/15/21 14:30 Ur Phencyclidine S crn Negative ng/mL (N egative) 10/15/21 14:30 Ur Amphetamines Sc reen Positive ng/mL (N egative) H 10/15/21 14:30 U Benzodiazepines Scrn Negative ng/mL (N egative) 10/15/21 14:30 Urine Cocaine Scre en Negative ng/mL (N egative) 10/15/21 14:30 U Marijuana (THC) Screen Positive ng/mL (N egative) H 10/15/21 14:30 Ethyl Alcohol < 10 mg/dL (0-10) 10/15/21 13:35 Vitals: Last Vital Signs Temp 98.4 F 10/19/21 06:00 Pulse 81 10/19/21 06:00 Resp 17 10/19/21 06:00 BP 134/73 10/19/21 06:00 Pulse Ox 98 10/19/21 06:00 Discharge Plan Discharge Patient Disposition: Home Condition: Stable Prescriptions: New ziprasidone HCl 40 mg Capsule 40 mg PO 0700,1700 30 Days Qty: 60 1RF Continued gabapentin 600 mg tablet 600 mg PO TID Qty: 90 5RF acetaminophen 500 mg Tablet 1,000 mg PO Q6H PRN (Reason: Pain) 0RF Discharge Orders: Discharge Order (Routine); Ordered 10/19/21 Ordered By: Sergei Mauricio Referrals: Mary Hart MD [Primary Care Provider] - Discharge Diet: Regular Discharge Activity: Resume usual activity Patient Instructions: Opioid Safety Discharge Attestations NPU Time Spent in Discharge Care*: less than 30 min Specific Discharge Activities: Specific discharge activities: educating patient, discussing with family independence case manager/social workers/dc planners, documenting/other paperwork and evaluating patient/reviewing data Status at Discharge: Cognitive status at discharge: cognitively intact , Behavioral status at discharge: cooperative , Coding [facility] Diagnoses Acute psychosis F23 Intermittent explosive disorder in adult F63.81 Alcohol use disorder, moderate, dependence F10.20 Polysubstance abuse F19.10 PTSD (post-traumatic stress disorder) F43.10 Methamphetamine abuse F15.10
[2021-10-19 10:40] VITALS: BP 134/73; PULSE 81; RESP 17; TEMP 36.9; O2SAT 98
--- NOTE | 2021-10-19 11:05 | PC.NURSE ---
DISCHARGE NOTE ALL DISCHARGE TEACHING COMPLETED. INSTRUCTED TO CALL PCP IN 1-3 DAYS AND MAKE A FOLLOW UP APT. PT STATES HE WILL MAKE A FOLLOW UP. EDUUCATED ON GE[place] AND TO CONTINUE HOME MEDICATIONS ORDERED. ALL QUESTIONS ANSWERED AND SUPPORT VOICED. VSS. DENIES PAIN. DENIES SI/HI AND AVH AT THIS TIME. HERE TO PICK PT UP. LEFT NPU AT 1107
== END 2021-10-19 11:07 | disposition home or self-care (01) | DRG 897 ==
LOC: ER 15:26 → NP 17:18
PROVIDERS: Admitting Provider Psychiatry & Neurology Psychiatry; Emergency Provider Physician Assistant; PCP Family Medicine; Visit Provider Psychiatry & Neurology Psychiatry
DX: F15.150 Other stimulant abuse with stimulant-induced psychotic disorder with delusions (principal); F19.150 Other psychoactive substance abuse with psychoactive substance-induced psychotic disorder with delusions; F10.20 Alcohol dependence, uncomplicated; F63.81 Intermittent explosive disorder; F43.10 Post-traumatic stress disorder, unspecified; G62.9 Polyneuropathy, unspecified
CPT/HCPCS: 80053; 80306; 80307; 85025; 97150; 97165; 99285